=== PATIENT | male | born 1945 | race Two or more races ===

== ENCOUNTER 2019-07-29 12:42 | Inpatient (IN) | payer MEDICARE, OTHER ==
[~2019-07-29] VITALS: Ht 177.8 cm; Wt 90.3 kg
[2019-07-29] MEDS ORDERED: MORPHINE SULFATE 4 MG/ML SYR/VIAL IV ONE (13:00)
[2019-07-29] MEDS ORDERED: ONDANSETRON HCL 4 MG/2 ML VIAL IV ONE (13:00)
[2019-07-29] MEDS ORDERED: ASPirin 81 mg TAB PO ONE (13:00)
[2019-07-29 13:36] LABS: Basophils # (auto) 0.1 10 ^3/uL (0-0.2); Basophils % (auto) 0.7 % (0.0-2.0); Eosinophils # (auto) 0 10 ^3/uL (0-0.8); Eosinophils % (auto) 0.2 % (0.0-7.0); Hematocrit 43.7 % (41.0-53.0); Hemoglobin 15.1 g/dL (13.5-17.5); Lymphocytes % (auto) 8.4 % (10.0-50.0); Mean Corpuscular Hemoglobin 31.6 pg (28.0-32.0); Mean Corpuscular Hgb Conc. 34.7 g/dL (32.0-36.0); Mean Corpuscular Volume 91.2 fL (80.0-100.0); Monocytes # (auto) 0.7 10 ^3/uL (0-1.3); Monocytes % (auto) 5.8 % (0.0-12.0); Neutrophils # (auto) 10.3 10 ^3/uL (1.6-8.6); Neutrophils % (auto) 84.9 % (37.0-80.0); Platelet Count (auto) 162 10^3/uL (140-450); Red Blood Cells 4.79 10^6/uL (4.5-5.90); Red Cell Distribution Width 13.7 % (11.8-14.3); White Blood Cell 12.2 10^3/uL (4.4-10.8)
[2019-07-29 13:48] LABS: Potassium 4.3 mmol/L (3.5-5.1)
[2019-07-29 13:57] LABS: Albumin 3.6 g/dL (3.4-5.0); BUN/Creatinine Ratio 20.3; Calcium 8.3 mg/dL (8.5-10.1); Total Protein 7.6 g/dL (6.4-8.2)
[2019-07-29] MEDS ORDERED: MORPHINE SULF INJ 2 MG/ML SYRINGE 1ML IV PRN (16:15)
[2019-07-29] MEDS ORDERED: NITROGLYCERIN 0.4 MG SL TAB SL PRN (16:15)
[2019-07-29] MEDS ORDERED: traMADol HCL 50 MG TAB PO PRN (17:15)
[2019-07-29] MEDS ORDERED: ACETAMINOPHEN 500 MG TAB PO PRN (17:15)
[2019-07-29] MEDS ORDERED: TEMAZEPAM 15 MG CAP PO PRN (17:15)
[2019-07-29] MEDS ORDERED: LACTULOSE 20Gm/30ML SOLN PO PRN (17:15)
[2019-07-29] MEDS ORDERED: DEXTROSE (50%) 50ML SYRG IV PRN (17:15)
[2019-07-29] MEDS: SODIUM CHLORIDE 0.9% 1,000 ML IV SCH ×2 (17:21→22:38)
--- NOTE | 2019-07-29 18:45 | NUR ---
PATIENT BROUGHT UP TO ROOM 296A, ORIENTED TO ROOM AND HOSPITAL SURROUNDING. PATIENT IS ALERT AND ORIENTED AND DENIES AND SOB, CP, ABD PAIN STATES "ONCE THEY GAVE ME MORPHINE I FEEL GREAT". PATIENT IS SITTING UP EATING DINNER AND INFORMED ME THAT WHEN ALL THIS STARTED HE WAS SUPPOSED TO BE GETTING A STRESS TEST. PATIENTS VITAL SIGNS ARE 151/73, HR 98, 18 RR, 98% AND 98.3.
--- NOTE | 2019-07-29 18:50 | NUR ---
Told R.n that Plavix still to give due to [facility] has no stock in the [facility]
--- NOTE | 2019-07-29 19:00 | NUR ---
RECEIVED CALL FOR CRITICAL VALUE TROPONIN 1.090. PAGED DR ESTES WHO PUT IN ORDERS TO TRANSFER TO [facility]. CHARGE NURSE WAS NOTIFIED WELL AUTO TIRE RECAPPER FOR BED ASSIGNMENT. ENDORSED TO ANTONIO THE PATIENT AND PLAN AT THIS POINT TO TRANSFER. CHECKED ON THE PATIENT AND HE STILL HAS NO COMPLAINTS OF ANY CP OR SOB, HE IS LAYING IN BED AND APPEARS TO BE COMFORTABLE. MONITOR SHOWS NSR 92. Addendum: 07/29/19 at 1938 by MIRTA SILVERMAN RN *ENDORSED TO ANTONIO SALMERON.
[2019-07-29] MEDS ORDERED: ENOXAPARIN SOD 80 MG/0.8ML SYRINGE SC ONE (19:15)
[2019-07-29] MEDS ORDERED: CLOPIDOGREL 300 MG TAB PO ONE (19:15)
[2019-07-29 19:45] VITALS: BP 124/61
--- NOTE | 2019-07-29 19:50 | NUR ---
Report given to Ginny Brice and transfer the patient to definitive observation unit, patient is awake alert oriented x 4, not in distress.
[2019-07-29 20:00] VITALS: BP 138/69
--- NOTE | 2019-07-29 20:59 | NUR ---
Admit to [facility] KAYLA TIERNEY transferred to [facility] via bed on tele box, and portable 02. Patient connected to unit monitoring and oxygen, and weighed by bedscale. Patient oriented to Babs Barker, primary RN, unit, room, bed, and unit policies regarding patient care and visiting hours. All questions and concerns addressed, patient verbalized understanding.
[2019-07-29] MEDS ORDERED: LOSA-69 PO (21:15)
[2019-07-29] MEDS ORDERED: ASPI-123 PO (21:17)
[2019-07-29] MEDS ORDERED: ATOR1TAB PO (21:17)
[2019-07-29] MEDS ORDERED: ATORVASTATIN 20 MG TAB PO SCH (22:00)
[2019-07-29] MEDS: ACCU-CHEK COMFORT CURVE STRIP VI SCH (22:00)
[2019-07-29] MEDS: FAMOTIDINE 20 MG TAB PO SCH (23:06)
[2019-07-29] MEDS: METOPROLOL TARTRATE 25 MG TAB PO SCH (23:07)
[2019-07-29] MEDS: InsuLIN REG 1unit/0.01ml Soln (100units/ml) SC SCH (23:09)
[2019-07-30] VITALS: BP 100/43
[2019-07-30 03:57] VITALS: BP 101/53
[2019-07-30] MEDS: ACCU-CHEK COMFORT CURVE STRIP VI SCH ×4 (07:00→22:09)
[2019-07-30] MEDS: InsuLIN REG 1unit/0.01ml Soln (100units/ml) SC SCH ×4 (07:00→22:00)
--- NOTE | 2019-07-30 07:30 | NUR ---
Pt remains stable. No changes this shift. Denies pain or abd discomfort. Report given, care endorsed.
[2019-07-30 07:40] LABS: Basophils # (auto) 0 10 ^3/uL (0-0.2); Basophils % (auto) 0.4 % (0.0-2.0); Eosinophils # (auto) 0.1 10 ^3/uL (0-0.8); Eosinophils % (auto) 1.1 % (0.0-7.0); Hematocrit 38.6 % (41.0-53.0); Hemoglobin 13.6 g/dL (13.5-17.5); Lymphocytes % (auto) 20.2 % (10.0-50.0); Mean Corpuscular Hemoglobin 32.3 pg (28.0-32.0); Mean Corpuscular Hgb Conc. 35.3 g/dL (32.0-36.0); Mean Corpuscular Volume 91.3 fL (80.0-100.0); Monocytes # (auto) 0.8 10 ^3/uL (0-1.3); Monocytes % (auto) 8.1 % (0.0-12.0); Neutrophils # (auto) 7.1 10 ^3/uL (1.6-8.6); Neutrophils % (auto) 70.2 % (37.0-80.0); Nucleated Red Blood Cells % 0.1 %; Platelet Count (auto) 136 10^3/uL (140-450); Red Blood Cells 4.23 10^6/uL (4.5-5.90); Red Cell Distribution Width 13.3 % (11.8-14.3); White Blood Cell 10.1 10^3/uL (4.4-10.8)
[2019-07-30 08:00] LABS: Calcium 7.6 mg/dL (8.5-10.1); Potassium 3.9 mmol/L (3.5-5.1)
[2019-07-30 08:05] LABS: BUN/Creatinine Ratio 11.9; Total Protein 6.5 g/dL (6.4-8.2)
--- NOTE | 2019-07-30 08:17 | NUR ---
CRITICAL LAB TROPONIN INCREASED FROM 1.090 TO1.950. PT REMAINS ASYMPTOMATIC, DENIES CP, ABDOMINAL PAIN OR S.O.B I NOTIFIED DR. GHOSH OF FINDINGS.DR. GHOSH STATES " I'LL SEE PT LATER"
[2019-07-30 08:30] VITALS: BP 109/55
--- NOTE | 2019-07-30 08:30 | NUR ---
AM ASSESSMENT COMPLETED, DENIES CP OR S.OB AT THIS TIME. ADMITTED FOR CP WITH ELEVATED TROPONIN. IV BENIGN AND PATENT. MONITOR ALARMS VERIFIED. EDUCATED ON POC. PT VERBALIZED UNDERSTANDING.
--- NOTE | 2019-07-30 09:30 | NUR ---
DR. GHOSH IN TO SEE PT. HE WANTS TO DO A HEART CATH FOR PT ON THURSDAY HE TOLD PT THAT HE HAD A HEART ATTACK.
[2019-07-30] MEDS ORDERED: ENOXAPARIN SOD 40 MG/0.4 ML SYRINGE SC SCH (10:00)
[2019-07-30] MEDS: FAMOTIDINE 20 MG TAB PO SCH ×2 (11:00→22:25)
[2019-07-30] MEDS: ENALAPRIL MALEATE 2.5 MG TAB PO SCH (11:01)
[2019-07-30] MEDS: ENOXAPARIN SOD 80 MG/0.8ML SYRINGE SC SCH ×2 (11:01→22:24)
[2019-07-30] MEDS: METOPROLOL TARTRATE 25 MG TAB PO SCH ×2 (11:02→22:00)
[2019-07-30] MEDS: CLOPIDOGREL BISULFATE 75 MG TAB PO SCH (11:02)
[2019-07-30] MEDS: NITROGLYCERIN 0.2MG/HR TOPICAL PATCH TD SCH (11:04)
[2019-07-30] MEDS: SODIUM CHLORIDE 0.9% 1,000 ML IV SCH ×2 (11:05→20:00)
[2019-07-30 12:30] VITALS: BP 118/58
--- NOTE | 2019-07-30 13:25 | NUR ---
COVID SWAB OBTAINED AND WALKED TO LAB, SIGNED IN
--- NOTE | 2019-07-30 14:00 | NUR ---
PLACED PT ON COVID 19 ISOLATION PER MD ORDERS PER PT'S SON'S REQUEST. PT'S SON STATES PT HAS HAD EXPOSURE TO COVID 19 AND HE UNDERSTANDS THAT HE IS MORE FRAGILE DUE TO AGE AND SINCE HE IS GOING TO HAVE A HEART CATH HE IS CONCERNED AND EVEN IF HE WOULD HAVE TO PAY OUT OF POCKET , HE'LL WANT HIS FATHER TESTED.
[2019-07-30 16:00] VITALS: BP 108/60
--- NOTE | 2019-07-30 18:00 | NUR ---
HYGIENE/ CARDIAC OUTPUT PT TOLERATED BEEN OUT OF BED UP IN A CHAIR FOR A COMPLETE SPONGE BATH. NO C/O CHEST PAIN OR S.O.B.
--- NOTE | 2019-07-30 19:00 | NUR ---
PT'S TEST FOR COVID 19 CAME BACK NEGATIVE. ISOLATION DISCONTINUED AT THIS TIME.
[2019-07-30 20:00] VITALS: BP 106/57
--- NOTE | 2019-07-30 20:24 | NUR ---
Pt had large BM, diarrhea. Pt stated cannot have milk. Added low lactose to diet. Pt stable. Will continue to monitor.
[2019-07-31 04:00] VITALS: BP 122/68
[2019-07-31 04:23] LABS: Basophils # (auto) 0 10 ^3/uL (0-0.2); Basophils % (auto) 0.3 % (0.0-2.0); Eosinophils # (auto) 0.2 10 ^3/uL (0-0.8); Hematocrit 38.5 % (41.0-53.0); Hemoglobin 13.3 g/dL (13.5-17.5); Lymphocytes # (auto) 2.1 10 ^3/uL (0.4-5.4); Lymphocytes % (auto) 21.1 % (10.0-50.0); Mean Corpuscular Hemoglobin 31.8 pg (28.0-32.0); Mean Corpuscular Hgb Conc. 34.6 g/dL (32.0-36.0); Mean Corpuscular Volume 91.8 fL (80.0-100.0); Monocytes # (auto) 0.8 10 ^3/uL (0-1.3); Monocytes % (auto) 7.9 % (0.0-12.0); Neutrophils # (auto) 6.7 10 ^3/uL (1.6-8.6); Neutrophils % (auto) 68.7 % (37.0-80.0); Platelet Count (auto) 135 10^3/uL (140-450); Red Blood Cells 4.19 10^6/uL (4.5-5.90); Red Cell Distribution Width 13.7 % (11.8-14.3); White Blood Cell 9.8 10^3/uL (4.4-10.8)
--- NOTE | 2019-07-31 06:05 | NUR ---
Paging MD regarding critical value troponin 14.300.
--- NOTE | 2019-07-31 06:06 | NUR ---
Stable, oriented, denies pain. Resting comfortably. Told pt to no eat or drink until further notice from RN this morning in case MD decides to take pt to equipment operator/laborer.
[2019-07-31] MEDS: ACCU-CHEK COMFORT CURVE STRIP VI SCH ×4 (07:00→22:00)
[2019-07-31] MEDS: InsuLIN REG 1unit/0.01ml Soln (100units/ml) SC SCH ×3 (07:00→16:25)
--- NOTE | 2019-07-31 07:00 | NUR ---
REPORT RECEIVED FROM GROUNDS RESTORATION SPECIALIST NURSE. PATIENT RESTING IN BED. RESPIRATIONS EVEN AND UNLABORED. NO SIGNS OF ACUTE DISTRESS NOTED. CALL LIGHT IN REACH, BED IN LOW POSITION. WILL CONTINUE TO MONITOR.
--- NOTE | 2019-07-31 07:50 | NUR ---
nutrition note pt consult for low lactose diet, dietary informed to make necessary changes as pt intolerant to lactose
--- NOTE | 2019-07-31 07:51 | NUR ---
paged again but was on hold so long it disconnected the phone call. Repaged to report Troponin level.
[2019-07-31 08:00] VITALS: BP 118/64
[2019-07-31 08:58] LABS: Urine WBC None Seen /hpf (0 - 3)
--- NOTE | 2019-07-31 09:01 | NUR ---
DR ESTES AT BEDSIDE TO ASSESS PATIENT AND DISCUSS PLAN OF CARE. ALL ORDERS NOTED IN CHART.
[2019-07-31] MEDS: SODIUM CHLORIDE 0.9% 1,000 ML IV SCH ×2 (09:03→21:54)
[2019-07-31 09:21] LABS: Urine Bacteria NONE SEEN /hpf (None Seen); Urine Blood Negative /uL (Negative); Urine Mucus FEW (None Seen)
[2019-07-31] MEDS: METOPROLOL TARTRATE 25 MG TAB PO SCH ×2 (10:00→23:05)
[2019-07-31] MEDS: CLOPIDOGREL BISULFATE 75 MG TAB PO SCH (10:00)
--- NOTE | 2019-07-31 10:02 | NUR ---
SPOKE TO DR BOBO ABOUT PATIENTS ELEVATED TROPONIN OF 14.30, PER MD KEEP PATIENT NPO WILL TAKE PATIENT TO MEDIA LIBRARIAN THIS AFTERNOON AROUND 1200. INFORMED PATIENT OF PLAN OF CARE. CALLED PAYROLL BENEFITS CLERK TO INFORM OF MD PLAN.
[2019-07-31] MEDS: NITROGLYCERIN 0.2MG/HR TOPICAL PATCH TD SCH (11:00)
[2019-07-31] MEDS: ENALAPRIL MALEATE 2.5 MG TAB PO SCH (11:00)
[2019-07-31] MEDS: FAMOTIDINE 20 MG TAB PO SCH ×2 (11:00→23:06)
[2019-07-31] MEDS ORDERED: ATROPINE SULF 1 MG/10ml SYR ONE (11:03)
[2019-07-31] MEDS ORDERED: HEPARIN SODIUM (PORCINE) 5000 UNITS/ML 1ML VIAL ONE (11:04)
[2019-07-31] MEDS ORDERED: MIDAZOLAM HCL 1MG/1ML-2 ML VIAL ONE (11:04)
[2019-07-31] MEDS ORDERED: fentaNYL CITRATE 100 MCG/2 ML VL ONE (11:04)
[2019-07-31] MEDS ORDERED: ANGIOMAX 250 MG VIAL IV ONE (11:04)
[2019-07-31] MEDS ORDERED: VERAPAMIL 2.5MG/ML INJ 2ML VIAL IV ONE (11:04)
[2019-07-31] MEDS ORDERED: SODIUM CHL 0.9% 0 ML ONE (11:05)
[2019-07-31] MEDS ORDERED: LIDOCAINE 2%HCL (LOCAL ANESTH.) INJ 20ML MDV ONE (11:16)
[2019-07-31] MEDS ORDERED: IODIXANOL 320MG/ML 100ML BTL IV ONE ×2 (11:16→11:44)
--- NOTE | 2019-07-31 11:25 | NUR ---
Pt brought to director of labor relations rm #2 in stable condition on a secured entrance monitor by 2 RN's. Pt A & O x4. Pt denies pain and nausea. No incidents to report.
--- NOTE | 2019-07-31 11:25 | NUR ---
PATIENT TAKEN TO PIN OR CLIP FASTENER FOR LEFT HEART CATHETERIZATION VIA BED CONNECTED TO PORTABLE OXYGEN AND MONITOR. VITAL SIGNS STABLE, NO COMPLAINTS OF PAIN AT THIS TIME. 2 RN'S FROM PIN OR CLIP FASTENER ACCOMPANIED PATIENT
[2019-07-31 11:47] LABS: Albumin 3.1 g/dL (3.4-5.0); Calcium 8.2 mg/dL (8.5-10.1); Potassium 3.6 mmol/L (3.5-5.1)
[2019-07-31 11:48] LABS: INR 1.17 (0.9-1.15)
[2019-07-31 11:50] LABS: BUN/Creatinine Ratio 10.3; Bilirubin, Total 2.6 mg/dL (0.2-1.0); Total Protein 7.1 g/dL (6.4-8.2)
--- NOTE | 2019-07-31 12:16 | NUR ---
Pt transported from Sustainable Design Coordinator to [facility] in stable condition on a monitor and storage bin tender. Pt A/O x4. Pt denies pain or nausea. Vasc band to the pt left wrist has no bleeding or hematoma. CSM to the left hand is WNL. Vasc band removal instructions given to JARON Tee. Care endorsed to JARON Tee. No incidents to report.
--- NOTE | 2019-07-31 12:16 | NUR ---
Left heart cath completed by Dr Robles. Report given to JARON Tee in detail by JARON Muñoz. Pt in stable condition. Will prepare to transport pt to [facility]. Will cont to monitor pt. Addendum: 07/31/19 at 1240 by Thao Muñoz RN Time change to for this note from 1216 to 1205.
--- NOTE | 2019-07-31 12:22 | NUR ---
PATIENT RETURNED TO ROOM FROM PAINT BOOTH OPERATOR VIA BED CONNECTED BACK TO BEDSIDE MONITOR AND OXYGEN. VITAL SIGNS STABLE, PATIENT IS ALERT AND ORIENTED X4. NO SIGNS OF ACUTE DISTRESS NOTED. BED IN LOW POSITION, CALL LIGHT IN REACH. WILL CONTINUE TO MONITOR.
[2019-07-31 12:25] VITALS: BP 125/59
[2019-07-31] MEDS ORDERED: HEPARIN SODIUM (PORCINE) 5000 UNITS/ML 1ML VIAL IV ONE (12:30)
--- NOTE | 2019-07-31 13:45 | NUR ---
VASC BAND TO LEFT WRIST REMOVED 2 ML OF AIR FROM BAND PER PROTOCOL. NO NOTED BLEEDING AT THIS TIME. WILL CONTINUE TO MONITOR.
[2019-07-31 13:49] LABS: Basophils # (auto) 0 10 ^3/uL (0-0.2); Basophils % (auto) 0.4 % (0.0-2.0); Eosinophils # (auto) 0.2 10 ^3/uL (0-0.8); Eosinophils % (auto) 2.4 % (0.0-7.0); Hematocrit 39.7 % (41.0-53.0); Hemoglobin 13.8 g/dL (13.5-17.5); Lymphocytes # (auto) 1.8 10 ^3/uL (0.4-5.4); Lymphocytes % (auto) 21.7 % (10.0-50.0); Mean Corpuscular Hemoglobin 31.7 pg (28.0-32.0); Mean Corpuscular Hgb Conc. 34.7 g/dL (32.0-36.0); Mean Corpuscular Volume 91.5 fL (80.0-100.0); Monocytes # (auto) 0.6 10 ^3/uL (0-1.3); Monocytes % (auto) 6.6 % (0.0-12.0); Neutrophils # (auto) 5.8 10 ^3/uL (1.6-8.6); Neutrophils % (auto) 68.9 % (37.0-80.0); Platelet Count (auto) 135 10^3/uL (140-450); Red Blood Cells 4.33 10^6/uL (4.5-5.90); Red Cell Distribution Width 13.4 % (11.8-14.3); White Blood Cell 8.4 10^3/uL (4.4-10.8)
--- NOTE | 2019-07-31 14:00 | NUR ---
VASC BAND TO LEFT WRIST REMOVED 2 ML OF AIR FROM BAND PER PROTOCOL. NO NOTED BLEEDING AT THIS TIME. WILL CONTINUE TO MONITOR.
--- NOTE | 2019-07-31 14:15 | NUR ---
VASC BAND TO LEFT WRIST REMOVED 2 ML OF AIR FROM BAND PER PROTOCOL. NO NOTED BLEEDING AT THIS TIME. WILL CONTINUE TO MONITOR.
[2019-07-31] MEDS: HEPARIN DRIP/D5W 100UNITS/ML 250 ML IV SCH (14:16)
--- NOTE | 2019-07-31 14:25 | NUR ---
PAGED PRESSER MACHINE CLINICAL LAB ASSISTANT TO INFORM OF POSSIBLE TRANSFER TO HIGHER LEVEL OF CARE FOR CABG. AWAITNG CALL BACK.
--- NOTE | 2019-07-31 14:30 | NUR ---
SPOKE TO DR BOBO TO INFORM THAT PATIENT IS REQUESTING TO BE TRANSFERRED TO [facility] IF HE IS UNABLE TO HAVE SURGERY HERE. PER MD OK TO PLACE A HOSPITAL TO REQUEST TRANSFER, BUT PATIENT NEEDS TO GO TO HOSPITAL THAT IS ABLE TO DO THE SURGERY THE FASTEST. INFORMED PATIENT OF MD RECOMMENDATIONS.
--- NOTE | 2019-07-31 14:35 | NUR ---
HEPARIN DRIP DR BOBO CALLED TO INFORM NOT TO START HEPARIN DRIP UNTIL 4 PM . INFORMED MD THAT IT WAS STARTED AT APPROX. 1415. PER MD STOP NOW AND RESTART AT 4PM. ORDERS COMPLETED.
--- NOTE | 2019-07-31 14:50 | NUR ---
SPOKE TO OTILIO FROM PETROLEUM TERMINAL PLANT OPERATOR. SHE STATED IT WILL BE BETTER TO START PROCESS ONCE DR WOUSU COMPLETES CONSULTATION TO SEE IF HIGHER LEVEL OF CARE IS NEEDED OR IF PATIENT IS TO HAVE SURGERY HERE.
--- NOTE | 2019-07-31 15:00 | NUR ---
VASC BAND REMOVAL REMOVED VASC BAND FROM LEFT WRIST AND PLACED STERILE GAUZE AND TEGADERM. NO NOTED BLEEDING, WILL CONTINUE TO MONITOR.
[2019-07-31 16:00] VITALS: BP 131/71
--- NOTE | 2019-07-31 16:55 | NUR ---
PLANISHER AT BEDSIDE.
[2019-07-31 20:00] VITALS: BP 149/78
[2019-07-31 23:00] VITALS: BP 156/81
--- NOTE | 2019-07-31 23:00 | NUR ---
Pt states has been feeling some epigastric pain since after dinner. Morphine for pain given. Will continue to monitor.
[2019-07-31] MEDS: MORPHINE SULF INJ 2 MG/ML SYRINGE 1ML IV PRN (23:06)
[2019-08-01] VITALS (10 sets, daily range): BP systolic 134–165; BP diastolic 69–86
[2019-08-01] MEDS: InsuLIN REG 1unit/0.01ml Soln (100units/ml) SC SCH ×4 (00:12→17:14)
--- NOTE | 2019-08-01 00:19 | NUR ---
PTT 49, increase heparin drip by 200 units per protocol.
--- NOTE | 2019-08-01 01:15 | NUR ---
Pt states still having pain. Ultram given. Will continue to monitor.
--- NOTE | 2019-08-01 03:45 | NUR ---
Pt states pain still keeping him from sleeping and seems worse. CP protocol initiated. Morphine given, Phenergan also given, and EKG done, no major dysrhythmia noted. MD aware.
[2019-08-01] MEDS: PROMETHAZINE HCL 25 MG/ML 1ML IV PRN ×2 (03:48→19:53)
--- NOTE | 2019-08-01 04:15 | NUR ---
Pt states pain relief. Able to sleep. Will continue to monitor.
--- NOTE | 2019-08-01 06:30 | NUR ---
Dr. Livingston called and stated he does not have an lead assistant manager to do any procedures until maybe and that pt needs to be transferred to a higher level of care. He stated if the pt has not been able to get a bed to be transferred by then that he would do the procedure.
[2019-08-01 07:09] LABS: Basophils # (auto) 0.1 10 ^3/uL (0-0.2); Basophils % (auto) 0.9 % (0.0-2.0); Eosinophils # (auto) 0.2 10 ^3/uL (0-0.8); Eosinophils % (auto) 2.5 % (0.0-7.0); Hematocrit 39.5 % (41.0-53.0); Hemoglobin 13.8 g/dL (13.5-17.5); Lymphocytes # (auto) 1.7 10 ^3/uL (0.4-5.4); Mean Corpuscular Hemoglobin 31.8 pg (28.0-32.0); Mean Corpuscular Hgb Conc. 34.9 g/dL (32.0-36.0); Mean Corpuscular Volume 90.9 fL (80.0-100.0); Monocytes # (auto) 0.5 10 ^3/uL (0-1.3); Monocytes % (auto) 5.8 % (0.0-12.0); Neutrophils # (auto) 6.8 10 ^3/uL (1.6-8.6); Neutrophils % (auto) 72.8 % (37.0-80.0); Nucleated Red Blood Cells % 0.1 %; Platelet Count (auto) 149 10^3/uL (140-450); Red Blood Cells 4.34 10^6/uL (4.5-5.90); White Blood Cell 9.4 10^3/uL (4.4-10.8)
[2019-08-01 07:22] LABS: BUN/Creatinine Ratio 11.9; Calcium 7.9 mg/dL (8.5-10.1); INR 1.11 (0.9-1.15); Potassium 3.4 mmol/L (3.5-5.1)
--- NOTE | 2019-08-01 07:30 | NUR ---
Pt remained stable the rest of shift and able to rest. Report given to AM shift, care endorsed. Pt states white retail loan originator assistant shoes missing. Will contact lost and found.
--- NOTE | 2019-08-01 08:30 | NUR ---
Opening Shift Note Assumed care of patient, awake and alert. No S/S of distress/SOB or chest pain noted. Instructed on POC and to call for assist PRN, will continue to monitor for changes Q1hr and PRN. On Room air O2 saturation 96-97%, no N/V noted.
[2019-08-01] MEDS: SODIUM CHLORIDE 0.9% 1,000 ML IV SCH (08:33)
[2019-08-01] MEDS: ACCU-CHEK COMFORT CURVE STRIP VI SCH ×3 (08:34→17:07)
--- NOTE | 2019-08-01 08:59 | NUR ---
Called the kitchen for Breakfast tray.
--- NOTE | 2019-08-01 09:15 | NUR ---
Provided breakfast tray.
[2019-08-01] MEDS: METOPROLOL TARTRATE 25 MG TAB PO SCH (09:26)
[2019-08-01] MEDS: ENALAPRIL MALEATE 2.5 MG TAB PO SCH (09:27)
[2019-08-01] MEDS: FAMOTIDINE 20 MG TAB PO SCH (09:27)
[2019-08-01] MEDS: NITROGLYCERIN 0.2MG/HR TOPICAL PATCH TD SCH (09:28)
[2019-08-01] MEDS ORDERED: ASPirin 81 mg TAB PO SCH (10:00)
--- NOTE | 2019-08-01 10:30 | NUR ---
Received a call from Dr. Robles, patient already on Heparin and Aspirin, no new order at this time. Plan to transfer to higher level of care.
--- NOTE | 2019-08-01 11:07 | NUR ---
Received a call from Dr. Jara, informed doctor that still waiting disability case manager working with transfer to higher level of care nd informed doctor that patient would like to have surgery done here in our hospital, MD will see patient today.
--- NOTE | 2019-08-01 11:12 | NUR ---
Received a call from Dr. Hsu, updated the plan that patient would like to have CABG done here , not transfer , will wait Dr. Jara to see patient and update with the plan of care later.
--- NOTE | 2019-08-01 11:40 | NUR ---
Dr. Jara at the bedside, seen and examined patient at this time, plan of care discussed with patient. Possible transfer to higher level of care for CABG due to no team available this week. Called and left the message to frozen foods manager to call back to Dr. Jara. Will continue to monitor and care.
--- NOTE | 2019-08-01 12:15 | NUR ---
Dr. Hsu at the bedside, seen and examined patient at this time, plan of care discussed with patient, per Dr. Jara, will transfer patient ti higher level of care for CABG.
--- NOTE | 2019-08-01 12:42 | NUR ---
I spoke with both Dr. Jara and Dr. Hsu regarding the transfer order/plan of care for this patient. I called [facility] [phone] and spoke with Teri in Admitting-faxed her requested clinical information-she will present to her MD and give me a call back.
--- NOTE | 2019-08-01 13:01 | NUR ---
Patient sitting on the edge of the bed for having Lunch, no N/V or chest pain noted.
[2019-08-01 13:20] LABS: INR 1.09 (0.9-1.15); Partial Thromboplastin Time 56.4 sec (23.64-32.05)
[2019-08-01] MEDS: HEPARIN DRIP/D5W 100UNITS/ML 250 ML IV SCH (13:56)
--- NOTE | 2019-08-01 15:16 | NUR ---
I spoke with patient regarding his transfer order for CABG. I made patient aware that [place] to [place] lack of service connection. Per patient his monthly income is over 1000 and will not qualify for medi-bret. Patient stated he hasn't had a need for secondary insurance-[facility] I made patient aware that he may be transferred to [facility] and he is agreeable. Per patient his primary care physician is at the [facility]. Patient moved here about a year ago, has not changed his primary care physician because he is not sure if he will stay here in [place] or move back to [place].
--- NOTE | 2019-08-01 15:25 | NUR ---
Left the message to Meaghan university manager per patient doesn't want to go to [facility], patient would like to go to some where else like [facility] etc, waiting Meaghan to call back.
--- NOTE | 2019-08-01 15:40 | NUR ---
Paged Meaghan asset protection manager to call back regarding patient would like to change to another hospital.
--- NOTE | 2019-08-01 15:42 | NUR ---
Transferred a call from Meaghan to talk to patient per patient requested.
--- NOTE | 2019-08-01 16:41 | NUR ---
Called and left the message to Lost and found unit for patient is looking for his shoes (White color).
--- NOTE | 2019-08-01 17:22 | NUR ---
I spoke with patient regarding his concerns about wanting to go to a [facility]. I let him know that I reached out to [facility], [facility] and [facility] and they have no beds available. Patient is agreeable to be transferred to [facility]. Patient will be going to room 3109, nurse to call report to [phone], accepting MD is Dr. Rose. I called [facility] and spoke with Ely-faxed them the transportation voucher-ETA is 2000 for critical care transport-I relayed this information to nurse Floridalma.
--- NOTE | 2019-08-01 18:41 | NUR ---
Dinner tray provided, patient sitting on the edge of bed for having Dinner. His son at the bedside for 15 minutes before transfer to another hospital ([facility]).
[2019-08-01 18:49] LABS: INR 1.13 (0.9-1.15); Partial Thromboplastin Time 53.2 sec (23.64-32.05)
--- NOTE | 2019-08-01 19:47 | NUR ---
PTT 53.2, continue Heparin 12 ml/hr, no bolus or change the rate needed as ordered.
[2019-08-01] MEDS: MORPHINE SULF INJ 2 MG/ML SYRINGE 1ML IV PRN (19:56)
--- NOTE | 2019-08-01 20:10 | NUR ---
PT TRANSFERRED NO DISTRESS NOTED. TRANSFERRING RN WITH PT SETTING UP [facility], REPORT RECEIVED.
[2019-08-01] MEDS ORDERED: ATORVASTATIN 20 MG TAB PO SCH (22:00)
== END 2019-08-01 20:10 | disposition short-term general hospital (02) | DRG 282 ==
LOC: EDBD 12:42 → ER 12:42 → TELE 12:43 → TELE-WESTW 18:39 → DOU IN ICU 19:31
PROVIDERS: ADMIT Internal Medicine; ATTEND Internal Medicine Nephrology
PROC: B211YZZ Fluoroscopy of Multiple Coronary Arteries using Other Contrast (ICD-10-PCS; principal; 2019-08-01)
DX: I21.4 Non-ST elevation (NSTEMI) myocardial infarction (principal); E11.9 Type 2 diabetes mellitus without complications; E66.9 Obesity, unspecified; E78.5 Hyperlipidemia, unspecified; I10 Essential (primary) hypertension; K76.0 Fatty (change of) liver, not elsewhere classified; D69.6 Thrombocytopenia, unspecified; E66.3 Overweight; E87.6 Hypokalemia; Z85.46 Personal history of malignant neoplasm of prostate; Z92.3 Personal history of irradiation; Z87.891 Personal history of nicotine dependence; Z68.28 Body mass index [BMI] 28.0-28.9, adult; Z88.5 Allergy status to narcotic agent; Z82.49 Family history of ischemic heart disease and other diseases of the circulatory system; I25.2 Old myocardial infarction; Z79.899 Other long term (current) drug therapy; Z79.82 Long term (current) use of aspirin; Z11.59 Encounter for screening for other viral diseases; I25.119 Atherosclerotic heart disease of native coronary artery with unspecified angina pectoris
CPT/HCPCS: 36415; 36600; 71045; 76705; 80048; 80053; 81001; 82150; 82550; 82805; 82962; 83036; 83690; 83735; 83880; 84484; 85025; 85379; 85610; 85652; 85730; 86850; 86900; 86901; 93005; 93454; 93886; 99152; G0378; J1815; J2250; J2405; Q9967

== ENCOUNTER 2019-08-07 17:31 | Emergency (ER) | payer MEDICARE, OTHER ==
[~2019-08-07] VITALS: Ht 172.7 cm; Wt 80.3 kg
[~2019-08-07 17:31] MED LIST: ASPI-123 PO; ATOR1TAB PO; LOSA-69 PO
[2019-08-07 18:28] LABS: Basophils # (auto) 0 10 ^3/uL (0-0.2); Basophils % (auto) 0.3 % (0.0-2.0); Eosinophils # (auto) 0.3 10 ^3/uL (0-0.8); Eosinophils % (auto) 1.6 % (0.0-7.0); Hematocrit 32.4 % (41.0-53.0); Lymphocytes # (auto) 1.4 10 ^3/uL (0.4-5.4); Mean Corpuscular Hemoglobin 31.1 pg (28.0-32.0); Mean Corpuscular Hgb Conc. 33.9 g/dL (32.0-36.0); Mean Corpuscular Volume 91.7 fL (80.0-100.0); Monocytes # (auto) 1.2 10 ^3/uL (0-1.3); Monocytes % (auto) 7.3 % (0.0-12.0); Neutrophils # (auto) 14.1 10 ^3/uL (1.6-8.6); Neutrophils % (auto) 82.8 % (37.0-80.0); Nucleated Red Blood Cells % 0.1 %; Platelet Count (auto) 305 10^3/uL (140-450); Red Blood Cells 3.53 10^6/uL (4.5-5.90); Red Cell Distribution Width 13.3 % (11.8-14.3); White Blood Cell 17.1 10^3/uL (4.4-10.8)
[2019-08-07 18:52] LABS: INR 1.14 (0.9-1.15); Partial Thromboplastin Time 32.1 sec (23.64-32.05)
[2019-08-07 18:55] LABS: Bilirubin, Total 2.8 mg/dL (0.2-1.0); Total Protein 8.8 g/dL (6.4-8.2)
[2019-08-07] MEDS ORDERED: cefTRIAXone 1GM/50ML D5W 50 ML IV ONE (23:00)
[2019-08-08] MEDS ORDERED: MORPHINE SULFATE 4 MG/ML SYR/VIAL IV ONE (02:15)
[2019-08-08] MEDS ORDERED: ONDANSETRON HCL 4 MG/2 ML VIAL IV ONE (02:15)
[2019-08-08 04:30] VITALS: BP 114/55
== END 2019-08-08 04:55 | disposition short-term general hospital (02) ==
LOC: ER 17:31
DX: J18.9 Pneumonia, unspecified organism (principal); N17.9 Acute kidney failure, unspecified; I11.0 Hypertensive heart disease with heart failure; I50.41 Acute combined systolic (congestive) and diastolic (congestive) heart failure; R79.89 Other specified abnormal findings of blood chemistry; E11.9 Type 2 diabetes mellitus without complications; E78.5 Hyperlipidemia, unspecified; Z95.1 Presence of aortocoronary bypass graft
CPT/HCPCS: 36415; 71046; 80053; 83605; 83735; 83880; 84484; 85025; 85379; 85610; 85730; 87040; 93005; 96365; 96375; 99285; J0696; J2270; J2405

== ENCOUNTER 2019-12-15 12:06 | Emergency (ER) | payer OTHER ==
[~2019-12-15] VITALS: Ht 172.7 cm; Wt 76.2 kg
[2019-12-15 13:20] LABS: Calcium 9.2 mg/dL (8.5-10.1); Chloride 106 mmol/L (98-107); Sodium 138 mmol/L (136-145)
[2019-12-15 13:29] LABS: Alanine Aminotransferase 21 U/L (16-61); Alkaline Phosphatase 121 U/L (45-117); Anion Gap 6 (5-15); Aspartate Aminotransferase 25 U/L (15-37); Bilirubin, Total 1.6 mg/dL (0.2-1.0); Blood Urea Nitrogen 26 mg/dL (7-18); Carbon Dioxide 26 mmol/L (21-32); GFR African American 74 mL/min; GFR Non-African American 61 mL/min; Glucose 185 mg/dL (74-106); Total Protein 8.2 g/dL (6.4-8.2)
[2019-12-15 14:03] LABS: Basophils # (auto) 0 10 ^3/uL (0-0.2); Basophils % (auto) 0.5 % (0.0-2.0); Eosinophils # (auto) 0.5 10 ^3/uL (0-0.8); Eosinophils % (auto) 6.2 % (0.0-7.0); Hematocrit 43.4 % (41.0-53.0); Hemoglobin 14.7 g/dL (13.5-17.5); Lymphocytes # (auto) 1.7 10 ^3/uL (0.4-5.4); Lymphocytes % (auto) 23.3 % (10.0-50.0); Mean Corpuscular Hemoglobin 29.4 pg (28.0-32.0); Mean Corpuscular Hgb Conc. 33.9 g/dL (32.0-36.0); Mean Corpuscular Volume 86.8 fL (80.0-100.0); Monocytes # (auto) 0.3 10 ^3/uL (0-1.3); Monocytes % (auto) 3.9 % (0.0-12.0); Neutrophils # (auto) 4.9 10 ^3/uL (1.6-8.6); Neutrophils % (auto) 66.1 % (37.0-80.0); Nucleated Red Blood Cells % 1.4 %; Platelet Count (auto) 194 10^3/uL (140-450); Red Cell Distribution Width 14.7 % (11.8-14.3); White Blood Cell 7.4 10^3/uL (4.4-10.8)
[2019-12-15 14:45] VITALS: BP 152/66
== END 2019-12-15 14:52 | disposition home or self-care (01) ==
LOC: ER 12:06
DX: R42 Dizziness and giddiness (principal); E11.9 Type 2 diabetes mellitus without complications; E78.5 Hyperlipidemia, unspecified; I10 Essential (primary) hypertension; Z87.891 Personal history of nicotine dependence; Z88.6 Allergy status to analgesic agent
CPT/HCPCS: 36415; 80053; 84484; 85025; 93005

== ENCOUNTER → 2020-09-26 | Outpatient (CLI) | payer OTHER ==
[~2020-09-26] MED LIST changes: +ATOR-47 PO; -ATOR1TAB PO
== END | disposition home or self-care (01) ==
LOC: XY 10:06
PROVIDERS: ATTEND Internal Medicine
DX: I70.201 Unspecified atherosclerosis of native arteries of extremities, right leg (principal); M79.604 Pain in right leg; M79.89 Other specified soft tissue disorders
CPT/HCPCS: 93926

== ENCOUNTER → 2020-11-27 | Outpatient (CLI) | payer OTHER ==
[2020-11-27 09:01] LABS: Potassium 4.1 mmol/L (3.5-5.1)
== END | disposition home or self-care (01) ==
LOC: LAB 08:14
PROVIDERS: ATTEND Internal Medicine
DX: I12.9 Hypertensive chronic kidney disease with stage 1 through stage 4 chronic kidney disease, or unspecified chronic kidney disease (principal); E11.22 Type 2 diabetes mellitus with diabetic chronic kidney disease; N18.30 Chronic kidney disease, stage 3 unspecified
CPT/HCPCS: 36415; 80048; 80061; 83036

== ENCOUNTER 2021-01-09 06:32 | Inpatient (IN) | payer OTHER ==
[2021-01-07 11:43] LABS: INR 1.09 (0.9-1.15); Partial Thromboplastin Time 26.5 sec (23.6-33.0)
[2021-01-07 11:44] LABS: Basophils # (auto) 0 10 ^3/uL (0-0.2); Basophils % (auto) 0.6 % (0.0-2.0); Eosinophils # (auto) 0.1 10 ^3/uL (0-0.8); Eosinophils % (auto) 2.1 % (0.0-7.0); Hemoglobin 15.2 g/dL (13.5-17.5); Lymphocytes # (auto) 1.8 10 ^3/uL (0.4-5.4); Lymphocytes % (auto) 25.5 % (10.0-50.0); Mean Corpuscular Hemoglobin 31.9 pg (28.0-32.0); Mean Corpuscular Hgb Conc. 35.3 g/dL (32.0-36.0); Mean Corpuscular Volume 90.4 fL (80.0-100.0); Monocytes # (auto) 0.5 10 ^3/uL (0-1.3); Monocytes % (auto) 7.2 % (0.0-12.0); Neutrophils # (auto) 4.5 10 ^3/uL (1.6-8.6); Neutrophils % (auto) 64.6 % (37.0-80.0); Nucleated Red Blood Cells % 0.1 %; Red Blood Cells 4.75 10^6/uL (4.5-5.90); Red Cell Distribution Width 13.8 % (11.8-14.3)
[2021-01-07 12:13] LABS: Potassium 4.3 mmol/L (3.5-5.1)
[2021-01-07 13:05] LABS: Albumin 3.7 g/dL (3.4-5.0); BUN/Creatinine Ratio 16.1; Calcium 8.9 mg/dL (8.5-10.1); Total Protein 7.7 g/dL (6.4-8.2)
[~2021-01-09] VITALS: Ht 172.7 cm; Wt 87.3 kg
[2021-01-09] VITALS (11 sets, daily range): BP systolic 104–136; BP diastolic 57–69
[~2021-01-09 06:32] MED LIST changes: +CARV3.1240 PO; -LOSA-69 PO
[2021-01-09] MEDS ORDERED: IODIXANOL 320MG/ML 100ML BTL IV ONE ×3 (07:13→09:29)
[2021-01-09] MEDS ORDERED: HEPARIN IN NS 1000Units/500mL 0 ML ONE (07:13)
[2021-01-09] MEDS ORDERED: LIDOCAINE 2%HCL (LOCAL ANESTH.) INJ 20ML MDV ONE ×2 (07:13→08:44)
[2021-01-09] MEDS ORDERED: ANGIOMAX 250 MG VIAL IV ONE ×2 (08:49→10:04)
[2021-01-09] MEDS ORDERED: MIDAZOLAM HCL 2MG/2ML 2ml VIAL (1mg/ml) ONE (08:50)
[2021-01-09] MEDS ORDERED: fentaNYL CITRATE 100 MCG/2 ML VL ONE (08:50)
[2021-01-09] MEDS ORDERED: SODIUM CHL 0.9% 50 ML ONE ×2 (08:50→10:05)
[2021-01-09] MEDS ORDERED: diphenhdrAMINE HCL 50 MG/1 ML VL ONE (09:16)
[2021-01-09] MEDS ORDERED: VERAPAMIL 2.5MG/ML INJ 2ML VIAL IV ONE (09:30)
[2021-01-09] MEDS ORDERED: NITROGLYCERIN 5MG/ML 10ML VIAL IV ONE (09:30)
[2021-01-09] MEDS ORDERED: MORPHINE SULFATE INJECTION 2 MG/ML SYRG IV ONE (18:00)
[2021-01-09] MEDS ORDERED: ACETAMINOPHEN 325 MG TAB PO PRN (18:15)
[2021-01-09] MEDS ORDERED: SODIUM CHLORIDE 0.9% 1,000 ML IV SCH (18:15)
[2021-01-09] MEDS ORDERED: CILOSTAZOL 100 MG TAB PO ONE (18:15)
[2021-01-09] MEDS ORDERED: MORPHINE SULFATE INJECTION 2 MG/ML SYRG IV PRN ×2 (18:15)
[2021-01-09] MEDS ORDERED: ALUM & MAG HYDROX-SIMETH LIQ(MAALOX) 30 ML PO PRN (18:15)
[2021-01-09] MEDS ORDERED: ONDANSETRON HCL 4 MG/2 ML VIAL IV PRN (18:15)
[2021-01-09] MEDS ORDERED: DOCUSATE SOD 100 MG CAP PO PRN (18:15)
[2021-01-09] MEDS ORDERED: NITROGLYCERIN 0.4 MG SL TAB SL PRN (18:15)
[2021-01-09] MEDS ORDERED: ATORVASTATIN 20 MG TAB PO ONE (18:15)
[2021-01-09] MEDS ORDERED: SODIUM CHLORIDE 0.9% 1,000 ML IV ONE (18:15)
[2021-01-09] MEDS ORDERED: LORazepam 0.5 MG TAB PO PRN (18:15)
[2021-01-09] MEDS ORDERED: PENTOXIFYLLINE 400 MG ER TAB PO ONE (18:45)
[2021-01-09 20:50] LABS: Cholesterol 75 mg/dL (< 200); HDL Cholesterol 32 mg/dL (40-59); LDL Cholesterol 31 mg/dL (< 100); Triglycerides 196 mg/dL (< 150)
[2021-01-09] MEDS: RIVAROXABAN 10 MG TAB PO SCH (21:15)
[2021-01-09] MEDS ORDERED: CILOSTAZOL 100 MG TAB PO SCH (22:00)
[2021-01-10 05:00] VITALS: BP 115/69
[2021-01-10] MEDS ORDERED: PENTOXIFYLLINE 400 MG ER TAB PO SCH (06:00)
[2021-01-10 07:19] LABS: Basophils # (auto) 0 10 ^3/uL (0-0.2); Basophils % (auto) 0.4 % (0.0-2.0); Eosinophils # (auto) 0.1 10 ^3/uL (0-0.8); Eosinophils % (auto) 1.6 % (0.0-7.0); Hematocrit 37.8 % (41.0-53.0); Hemoglobin 13.1 g/dL (13.5-17.5); Lymphocytes # (auto) 2.1 10 ^3/uL (0.4-5.4); Lymphocytes % (auto) 23.5 % (10.0-50.0); Mean Corpuscular Hemoglobin 31.1 pg (28.0-32.0); Mean Corpuscular Hgb Conc. 34.6 g/dL (32.0-36.0); Monocytes # (auto) 0.8 10 ^3/uL (0-1.3); Monocytes % (auto) 8.4 % (0.0-12.0); Neutrophils % (auto) 66.1 % (37.0-80.0); Red Cell Distribution Width 13.9 % (11.8-14.3); White Blood Cell 9.1 10^3/uL (4.4-10.8)
[2021-01-10 07:34] LABS: INR 1.27 (0.9-1.15); Partial Thromboplastin Time 34.2 sec (23.6-33.0)
[2021-01-10 07:40] LABS: Potassium 3.9 mmol/L (3.5-5.1)
[2021-01-10 07:59] LABS: BUN/Creatinine Ratio 22.3; Bilirubin, Total 2.3 mg/dL (0.2-1.0); Calcium 8.6 mg/dL (8.5-10.1); Magnesium 2.7 mg/dL (1.6-2.6); Phosphorus 3.7 mg/dL (2.5-4.90); Total Protein 6.9 g/dL (6.4-8.2); Uric Acid 4.6 mg/dL (3.5-7.2)
[2021-01-10 08:55] VITALS: BP 106/69
[2021-01-10] MEDS ORDERED: ASPirin 81 mg TAB PO SCH (10:00)
[2021-01-10] MEDS ORDERED: METOPROLOL SUCCINATE XL 50 MG TAB PO SCH (10:00)
[2021-01-10] MEDS ORDERED: CLOPIDOGREL BISULFATE 75 MG TAB PO SCH (10:00)
[2021-01-10] MEDS: RIVAROXABAN 10 MG TAB PO SCH (10:13)
[2021-01-10 12:33] VITALS: BP 124/81
[2021-01-10 12:36] VITALS: BP 106/69
[2021-01-10] MEDS ORDERED: ATORVASTATIN 20 MG TAB PO SCH (22:00)
== END 2021-01-10 13:20 | disposition home or self-care (01) | DRG 272 ==
LOC: CATH 06:32 → WEST WING 13:45
PROVIDERS: ADMIT Internal Medicine; ATTEND Internal Medicine
PROC: B41G1ZZ Fluoroscopy of Left Lower Extremity Arteries using Low Osmolar Contrast (ICD-10-PCS; principal; 2021-01-09)
PROC: 04CK3ZZ Extirpation of Matter from Right Femoral Artery, Percutaneous Approach (ICD-10-PCS; 2021-01-09)
PROC: 04FK3ZZ Fragmentation of Right Femoral Artery, Percutaneous Approach (ICD-10-PCS; 2021-01-09)
PROC: 047K3DZ Dilation of Right Femoral Artery with Intraluminal Device, Percutaneous Approach (ICD-10-PCS; 2021-01-09)
PROC: B41F1ZZ Fluoroscopy of Right Lower Extremity Arteries using Low Osmolar Contrast (ICD-10-PCS; 2021-01-09)
DX: E11.51 Type 2 diabetes mellitus with diabetic peripheral angiopathy without gangrene (principal); E78.5 Hyperlipidemia, unspecified; I70.211 Atherosclerosis of native arteries of extremities with intermittent claudication, right leg; I10 Essential (primary) hypertension; I25.10 Atherosclerotic heart disease of native coronary artery without angina pectoris; Z79.82 Long term (current) use of aspirin; Z83.3 Family history of diabetes mellitus; Z87.891 Personal history of nicotine dependence; Z95.1 Presence of aortocoronary bypass graft; Z79.899 Other long term (current) drug therapy
CPT/HCPCS: 36415; 37227; 80053; 80061; 82306; 83036; 83735; 83880; 84100; 84443; 84484; 84550; 85025; 85610; 85730; 87040; 99152; 99153; C1724; G0378; J2250; J3490; Q9967

== ENCOUNTER 2021-01-13 10:47 | Emergency (ER) | payer OTHER ==
[~2021-01-13] VITALS: Ht 172.7 cm; Wt 81.6 kg
[2021-01-13 15:00] VITALS: BP 102/40
== END 2021-01-13 16:32 | disposition home or self-care (01) ==
LOC: ER 10:47
DX: S30.1XXA Contusion of abdominal wall, initial encounter (principal); I25.2 Old myocardial infarction; E78.5 Hyperlipidemia, unspecified; E11.9 Type 2 diabetes mellitus without complications; Z88.6 Allergy status to analgesic agent; Z90.89 Acquired absence of other organs; X58.XXXA Exposure to other specified factors, initial encounter; Y93.89 Activity, other specified; Y92.89 Other specified places as the place of occurrence of the external cause; Y99.8 Other external cause status
CPT/HCPCS: 82962

== ENCOUNTER → 2021-01-23 | Outpatient (CLI) | payer OTHER ==
[~2021-01-23] MED LIST changes: +APIX2.5T PO; +LOSA25TA38 PO
[2021-01-23 11:47] LABS: Basophils # (auto) 0.1 10 ^3/uL (0-0.2); Basophils % (auto) 1.1 % (0.0-2.0); Eosinophils # (auto) 0.2 10 ^3/uL (0-0.8); Eosinophils % (auto) 2.6 % (0.0-7.0); Lymphocytes # (auto) 1.5 10 ^3/uL (0.4-5.4); Lymphocytes % (auto) 23.5 % (10.0-50.0); Mean Corpuscular Hemoglobin 30.9 pg (28.0-32.0); Mean Corpuscular Hgb Conc. 34.2 g/dL (32.0-36.0); Mean Corpuscular Volume 90.5 fL (80.0-100.0); Monocytes # (auto) 0.4 10 ^3/uL (0-1.3); Monocytes % (auto) 5.4 % (0.0-12.0); Neutrophils # (auto) 4.4 10 ^3/uL (1.6-8.6); Neutrophils % (auto) 67.4 % (37.0-80.0); Nucleated Red Blood Cells % 0.1 %; Red Blood Cells 3.87 10^6/uL (4.5-5.90); Red Cell Distribution Width 14.7 % (11.8-14.3); White Blood Cell 6.6 10^3/uL (4.4-10.8)
[2021-01-23 12:27] LABS: Calcium 8.4 mg/dL (8.5-10.1); Potassium 3.9 mmol/L (3.5-5.1)
[2021-01-23 12:30] LABS: BUN/Creatinine Ratio 14.1
== END | disposition home or self-care (01) ==
LOC: LAB 11:23
PROVIDERS: ATTEND Internal Medicine
DX: I12.9 Hypertensive chronic kidney disease with stage 1 through stage 4 chronic kidney disease, or unspecified chronic kidney disease (principal); N18.30 Chronic kidney disease, stage 3 unspecified; I25.10 Atherosclerotic heart disease of native coronary artery without angina pectoris
CPT/HCPCS: 36415; 80048; 82043; 85025

== ENCOUNTER 2021-01-25 03:09 | Observation (INO) | payer OTHER ==
[~2021-01-25] VITALS: Ht 172.7 cm; Wt 84.9 kg
[~2021-01-25 03:09] MED LIST changes: -APIX2.5T PO; -LOSA25TA38 PO
[2021-01-25] MEDS ORDERED: ASPirin 81 mg TAB PO ONE (03:30)
[2021-01-25 03:47] LABS: Basophils # (auto) 0 10 ^3/uL (0-0.2); Basophils % (auto) 0.7 % (0.0-2.0); Eosinophils # (auto) 0.3 10 ^3/uL (0-0.8); Eosinophils % (auto) 3.5 % (0.0-7.0); Hematocrit 38.4 % (41.0-53.0); Hemoglobin 12.8 g/dL (13.5-17.5); Lymphocytes # (auto) 2.4 10 ^3/uL (0.4-5.4); Lymphocytes % (auto) 32.2 % (10.0-50.0); Mean Corpuscular Hemoglobin 30.7 pg (28.0-32.0); Mean Corpuscular Hgb Conc. 33.3 g/dL (32.0-36.0); Mean Corpuscular Volume 92.2 fL (80.0-100.0); Monocytes # (auto) 0.5 10 ^3/uL (0-1.3); Monocytes % (auto) 7.5 % (0.0-12.0); Neutrophils # (auto) 4.1 10 ^3/uL (1.6-8.6); Neutrophils % (auto) 56.1 % (37.0-80.0); Nucleated Red Blood Cells % 0.1 %; Red Blood Cells 4.17 10^6/uL (4.5-5.90); Red Cell Distribution Width 14.5 % (11.8-14.3); White Blood Cell 7.3 10^3/uL (4.4-10.8)
[2021-01-25 04:07] LABS: Albumin 3.4 g/dL (3.4-5.0); Calcium 8.5 mg/dL (8.5-10.1); Potassium 3.8 mmol/L (3.5-5.1)
[2021-01-25 04:14] LABS: BUN/Creatinine Ratio 17.3; Bilirubin, Total 2.3 mg/dL (0.2-1.0); Total Protein 7.5 g/dL (6.4-8.2)
[2021-01-25 04:25] LABS: INR 1.06 (0.9-1.15); Partial Thromboplastin Time 27.2 sec (23.6-33.0)
[2021-01-25] MEDS ORDERED: SODIUM CHLORIDE 0.9% 1,000 ML IV ONE (09:45)
[2021-01-25] MEDS ORDERED: DOCUSATE SOD 100 MG CAP PO PRN (09:45)
[2021-01-25] MEDS ORDERED: PANTOPRAZOLE 40 MG/10 ML VIAL INJ IV ONE (09:45)
[2021-01-25] MEDS ORDERED: LORazepam 0.5 MG TAB PO PRN (09:45)
[2021-01-25] MEDS ORDERED: SUCRALFATE 1 GM/10 ML ORAL SUSP PO ONE (09:45)
[2021-01-25] MEDS ORDERED: ONDANSETRON HCL 4 MG/2 ML VIAL IV PRN (09:45)
[2021-01-25] MEDS ORDERED: NITROGLYCERIN 0.4 MG SL TAB SL PRN (09:45)
[2021-01-25] MEDS ORDERED: ATORVASTATIN 20 MG TAB PO ONE (09:45)
[2021-01-25] MEDS ORDERED: HYDROcodone-ACET 5/325MG TAB PO PRN (09:45)
[2021-01-25] MEDS ORDERED: ALUM & MAG HYDROX-SIMETH LIQ(MAALOX) 30 ML PO PRN (09:45)
[2021-01-25] MEDS ORDERED: MORPHINE SULFATE INJECTION 2 MG/ML SYRG IV PRN ×2 (09:45)
[2021-01-25] MEDS ORDERED: ACETAMINOPHEN 325 MG TAB PO PRN (09:45)
[2021-01-25 09:58] LABS: Urine Bacteria NONE SEEN /hpf (None Seen); Urine Blood Negative /uL (Negative); Urine Specific Gravity 1.018 (1.001-1.035); Urine WBC <1 /hpf (0 - 3)
[2021-01-25] MEDS: PANTOPRAZOLE 40 MG TAB PO SCH (12:15)
[2021-01-25 13:25] LABS: Amylase 70 U/L (25-115); Lipase 150 U/L (73-393)
[2021-01-25] MEDS: SODIUM CHLOR 0.9% PF (SALINE LOCK) 10ML VIAL/SYR IV SCH (14:22)
[2021-01-25] MEDS ORDERED: APIX2.5T PO (17:52)
[2021-01-25] MEDS ORDERED: LOSA25TA38 PO (17:53)
[2021-01-25 21:52] VITALS: BP 136/73
[2021-01-26 05:03] VITALS: BP 118/65
[2021-01-26 05:56] LABS: BUN/Creatinine Ratio 14.4; Bilirubin, Direct 0.4 mg/dL (0-0.2); Bilirubin, Total 2.7 mg/dL (0.2-1.0); Calcium 7.8 mg/dL (8.5-10.1); Total Protein 6.3 g/dL (6.4-8.2)
[2021-01-26] MEDS: SODIUM CHLOR 0.9% PF (SALINE LOCK) 10ML VIAL/SYR IV SCH ×2 (06:44→06:45)
[2021-01-26 09:00] VITALS: BP 141/73
[2021-01-26] MEDS: PANTOPRAZOLE 40 MG TAB PO SCH (09:38)
[2021-01-26 13:00] VITALS: BP 148/72
[2021-01-26 13:07] VITALS: BP 141/73
== END 2021-01-26 14:14 | disposition home or self-care (01) ==
LOC: ER 03:09 → TELE 09:31 → TELE-WESTW 16:53
PROVIDERS: ADMIT Internal Medicine; ATTEND Internal Medicine
DX: R10.13 Epigastric pain (principal); Z20.822 Contact with and (suspected) exposure to COVID-19; S30.1XXA Contusion of abdominal wall, initial encounter; I25.10 Atherosclerotic heart disease of native coronary artery without angina pectoris; M79.81 Nontraumatic hematoma of soft tissue; E11.9 Type 2 diabetes mellitus without complications; I73.9 Peripheral vascular disease, unspecified; I11.9 Hypertensive heart disease without heart failure; K80.20 Calculus of gallbladder without cholecystitis without obstruction; E78.5 Hyperlipidemia, unspecified; Z87.891 Personal history of nicotine dependence; Z79.82 Long term (current) use of aspirin; Z95.1 Presence of aortocoronary bypass graft; Z79.01 Long term (current) use of anticoagulants; Z79.899 Other long term (current) drug therapy; Z98.890 Other specified postprocedural states; X58.XXXA Exposure to other specified factors, initial encounter
CPT/HCPCS: 36415; 71045; 76705; 80053; 80076; 81001; 82150; 83690; 83735; 83880; 84484; 85025; 85610; 85730; 87426; 93306; 93926; 96374; 99285; C9113; G0378

== ENCOUNTER → 2021-01-29 | Outpatient (CLI) | payer OTHER ==
[~2021-01-29] MED LIST changes: +APIX2.5T PO; +LOSA25TA38 PO
[2021-01-29 15:44] LABS: Chloride 110 mmol/L (98-107); Potassium 4.4 mmol/L (3.5-5.1); Sodium 143 mmol/L (136-145)
[2021-01-29 15:45] LABS: Alanine Aminotransferase 28 U/L (16-61); Albumin 3.4 g/dL (3.4-5.0); Alkaline Phosphatase 116 U/L (45-117); Anion Gap 9 (5-15); Aspartate Aminotransferase 29 U/L (15-37); BUN/Creatinine Ratio 17.4; Bilirubin, Total 3.3 mg/dL (0.2-1.0); Blood Urea Nitrogen 28 mg/dL (7-18); Calcium 8.4 mg/dL (8.5-10.1); Carbon Dioxide 24 mmol/L (21-32); GFR African American 54 mL/min; GFR Non-African American 45 mL/min; Glucose 99 mg/dL (74-106); Total Protein 7.1 g/dL (6.4-8.2)
== END | disposition home or self-care (01) ==
LOC: LAB 14:34
PROVIDERS: ATTEND Internal Medicine
DX: I10 Essential (primary) hypertension (principal)
CPT/HCPCS: 36415; 80053

== ENCOUNTER 2021-08-19 10:38 | Inpatient (IN) | payer OTHER ==
[~2021-08-19] VITALS: Ht 167.6 cm; Wt 88.2 kg
[2021-08-19] MEDS ORDERED: MORPHINE SULFATE 4 MG/ML SYR/VIAL IV ONE (11:15)
[2021-08-19] MEDS ORDERED: ONDANSETRON HCL 4 MG/2 ML VIAL IV ONE (11:15)
[2021-08-19] MEDS ORDERED: PANTOPRAZOLE 40 MG/10 ML VIAL INJ IV ONE (11:15)
[2021-08-19] MEDS ORDERED: SODIUM CHLORIDE 0.9% 500 ML IVB ONE (11:15)
[2021-08-19 12:22] LABS: Basophils # (auto) 0 10 ^3/uL (0-0.2); Basophils % (auto) 0.5 % (0.0-2.0); Eosinophils # (auto) 0.2 10 ^3/uL (0-0.8); Eosinophils % (auto) 3.5 % (0.0-7.0); Hematocrit 44.2 % (41.0-53.0); Hemoglobin 14.9 g/dL (13.5-17.5); Lymphocytes # (auto) 1.6 10 ^3/uL (0.4-5.4); Lymphocytes % (auto) 23.3 % (10.0-50.0); Mean Corpuscular Hemoglobin 30.1 pg (28.0-32.0); Mean Corpuscular Hgb Conc. 33.8 g/dL (32.0-36.0); Mean Corpuscular Volume 89.2 fL (80.0-100.0); Monocytes # (auto) 0.6 10 ^3/uL (0-1.3); Monocytes % (auto) 8.2 % (0.0-12.0); Neutrophils # (auto) 4.4 10 ^3/uL (1.6-8.6); Neutrophils % (auto) 64.5 % (37.0-80.0); Red Blood Cells 4.95 10^6/uL (4.5-5.90); Red Cell Distribution Width 14.2 % (11.8-14.3); White Blood Cell 6.8 10^3/uL (4.4-10.8)
[2021-08-19 12:40] LABS: Albumin 3.5 g/dL (3.4-5.0); Calcium 8.8 mg/dL (8.5-10.1); Magnesium 2.1 mg/dL (1.6-2.6); Potassium 4.3 mmol/L (3.5-5.1)
[2021-08-19 12:45] LABS: BUN/Creatinine Ratio 12.5; Total Protein 7.7 g/dL (6.4-8.2)
[2021-08-19 14:26] LABS: Urine Bacteria NONE SEEN /hpf (None Seen); Urine Blood Negative /uL (Negative); Urine Mucus FEW (None Seen); Urine Specific Gravity 1.019 (1.001-1.035); Urine WBC <1 /hpf (0 - 3)
[2021-08-19] MEDS ORDERED: ONDANSETRON HCL 4 MG/2 ML VIAL IV PRN (17:00)
[2021-08-19] MEDS: InsuLIN REG 1unit/0.01ml Soln (100units/ml) SC SCH ×2 (17:00→22:00)
[2021-08-19] MEDS ORDERED: DEXTROSE (50%) 50ML SYRG IV PRN (17:00)
[2021-08-19] MEDS: ACCU-CHEK COMFORT CURVE STRIP VI SCH ×2 (17:00→22:00)
[2021-08-19] MEDS ORDERED: MORPHINE SULFATE INJ 2 MG/ml SYRG IV PRN (17:00)
[2021-08-19 17:56] LABS: INR 2.07 (0.9-1.15)
[2021-08-19 17:57] LABS: Cholesterol 74 mg/dL (< 200); HDL Cholesterol 34 mg/dL (40-59); LDL Cholesterol 36 mg/dL (< 100); Triglycerides 126 mg/dL (< 150)
[2021-08-19] MEDS ORDERED: hydrALAZINE HCL 20 MG/ML VL IV PRN (18:30)
[2021-08-19] MEDS: metroNIDAZOLE 500MG/100ML 100 ML IV SCH (22:41)
[2021-08-19 23:30] VITALS: BP 116/65
[2021-08-20] MEDS ORDERED: CAR3125T PO (03:54)
[2021-08-20] MEDS ORDERED: ATOR40TA52 PO (03:54)
[2021-08-20] MEDS ORDERED: EZET10TA22 PO (03:54)
[2021-08-20 04:44] VITALS: BP 129/59
[2021-08-20] MEDS: metroNIDAZOLE 500MG/100ML 100 ML IV SCH ×3 (05:46→22:25)
[2021-08-20 05:51] LABS: Basophils # (auto) 0 10 ^3/uL (0-0.2); Basophils % (auto) 0.3 % (0.0-2.0); Eosinophils # (auto) 0.2 10 ^3/uL (0-0.8); Eosinophils % (auto) 3.4 % (0.0-7.0); Hematocrit 41.5 % (41.0-53.0); Lymphocytes # (auto) 1.8 10 ^3/uL (0.4-5.4); Lymphocytes % (auto) 30.4 % (10.0-50.0); Mean Corpuscular Hemoglobin 30.5 pg (28.0-32.0); Mean Corpuscular Hgb Conc. 33.8 g/dL (32.0-36.0); Mean Corpuscular Volume 90.4 fL (80.0-100.0); Monocytes # (auto) 0.5 10 ^3/uL (0-1.3); Monocytes % (auto) 7.7 % (0.0-12.0); Neutrophils # (auto) 3.5 10 ^3/uL (1.6-8.6); Neutrophils % (auto) 58.2 % (37.0-80.0); Nucleated Red Blood Cells % 0.1 %; Red Blood Cells 4.59 10^6/uL (4.5-5.90); Red Cell Distribution Width 14.4 % (11.8-14.3)
[2021-08-20 05:59] LABS: Calcium 8.2 mg/dL (8.5-10.1); Potassium 3.7 mmol/L (3.5-5.1)
[2021-08-20 06:05] LABS: Albumin 2.9 g/dL (3.4-5.0); BUN/Creatinine Ratio 12.6; Bilirubin, Total 1.8 mg/dL (0.2-1.0); Total Protein 6.5 g/dL (6.4-8.2)
[2021-08-20] MEDS: InsuLIN REG 1unit/0.01ml Soln (100units/ml) SC SCH ×4 (06:31→23:10)
[2021-08-20] MEDS: ACCU-CHEK COMFORT CURVE STRIP VI SCH ×4 (06:31→23:10)
[2021-08-20 09:00] VITALS: BP 123/65
[2021-08-20 13:00] VITALS: BP 126/66
[2021-08-20 17:00] VITALS: BP 130/67
[2021-08-21 01:34] VITALS: BP 144/62
[2021-08-21 05:06] VITALS: BP 133/79
[2021-08-21] MEDS: metroNIDAZOLE 500MG/100ML 100 ML IV SCH ×3 (05:31→22:57)
[2021-08-21 05:36] LABS: Basophils # (auto) 0 10 ^3/uL (0-0.2); Basophils % (auto) 0.6 % (0.0-2.0); Eosinophils # (auto) 0.2 10 ^3/uL (0-0.8); Hematocrit 41.8 % (41.0-53.0); Hemoglobin 14.4 g/dL (13.5-17.5); Lymphocytes # (auto) 1.9 10 ^3/uL (0.4-5.4); Lymphocytes % (auto) 28.9 % (10.0-50.0); Mean Corpuscular Hemoglobin 30.4 pg (28.0-32.0); Mean Corpuscular Hgb Conc. 34.4 g/dL (32.0-36.0); Mean Corpuscular Volume 88.2 fL (80.0-100.0); Monocytes # (auto) 0.5 10 ^3/uL (0-1.3); Monocytes % (auto) 7.5 % (0.0-12.0); Neutrophils # (auto) 3.9 10 ^3/uL (1.6-8.6); Red Blood Cells 4.74 10^6/uL (4.5-5.90); Red Cell Distribution Width 14.2 % (11.8-14.3); White Blood Cell 6.5 10^3/uL (4.4-10.8)
[2021-08-21 05:51] LABS: INR 1.12 (0.9-1.15); Partial Thromboplastin Time 28.4 sec (23.6-33.0)
[2021-08-21 05:54] LABS: Albumin 3.2 g/dL (3.4-5.0); Calcium 8.7 mg/dL (8.5-10.1); Potassium 3.7 mmol/L (3.5-5.1)
[2021-08-21 05:59] LABS: BUN/Creatinine Ratio 8.7; Total Protein 6.8 g/dL (6.4-8.2)
[2021-08-21] MEDS: InsuLIN REG 1unit/0.01ml Soln (100units/ml) SC SCH ×4 (07:00→22:58)
[2021-08-21] MEDS: ACCU-CHEK COMFORT CURVE STRIP VI SCH ×4 (07:43→22:57)
[2021-08-21 09:15] VITALS: BP 140/62
[2021-08-21] MEDS ORDERED: MIDAZOLAM HCL 2MG/2ML 2ml VIAL (1mg/ml) ONE (10:26)
[2021-08-21] MEDS ORDERED: NEOSTIGMINE 1 MG/ML INJ (10mg/10ML VIAL) ONE (10:26)
[2021-08-21] MEDS ORDERED: ETOMIDATE (2MG/ML) 20ML VIAL IV ONE (10:26)
[2021-08-21] MEDS ORDERED: GLYCOPYRROLATE 0.2 MG/ML 1ML VIAL ONE (10:26)
[2021-08-21] MEDS ORDERED: SODIUM CHLORIDE LOCK 10 ML ONE (10:26)
[2021-08-21] MEDS ORDERED: fentaNYL CITRATE 100 MCG/2 ML VL ONE (10:26)
[2021-08-21] MEDS ORDERED: DexAMETHasone SOD PHOS 10MG/1ML VIAL INJ ONE (10:26)
[2021-08-21] MEDS ORDERED: ONDANSETRON HCL 4 MG/2 ML VIAL ONE (10:26)
[2021-08-21] MEDS ORDERED: ceFAZolin 1GM/50ML 100 ML IV ONE (10:31)
[2021-08-21] MEDS ORDERED: ROCURONIUM 10MG/ML 10ML VIAL IV ONE (10:32)
[2021-08-21] MEDS ORDERED: DOXAPRAM HCL 20 MG/ML 20ML VIAL INJ IV ONE (10:34)
[2021-08-21] MEDS ORDERED: LIDOCAINE 1%-Mpf/Epinephrine 1:200,000 ONE (10:53)
[2021-08-21] MEDS ORDERED: BUPIVACAINE 0.25% INJ 50ML VIAL ONE (10:53)
[2021-08-21] MEDS ORDERED: SUCCINYLCHOLINE CHLORIDE 20 MG/ML 10ML VIAL IV ONE (13:31)
[2021-08-21] MEDS ORDERED: HYDROmorphone HCL 2 MG/ML VL/or syr IV PRN ×2 (13:45)
[2021-08-21] MEDS ORDERED: ACCU-CHEK COMFORT CURVE STRIP VI ONE (13:45)
[2021-08-21] MEDS ORDERED: METOCLOPRAMIDE HCL 5MG/ml INJ 2ml VIAL IV PRN (13:45)
[2021-08-21] MEDS ORDERED: MORPHINE SULFATE 4 MG/ML SYR/VIAL IV PRN (13:45)
[2021-08-21 17:02] VITALS: BP 140/70
[2021-08-21 22:00] VITALS: BP 133/76
[2021-08-22 05:00] VITALS: BP 140/65
[2021-08-22] MEDS: metroNIDAZOLE 500MG/100ML 100 ML IV SCH ×3 (05:42→21:39)
[2021-08-22 05:52] LABS: Basophils # (auto) 0 10 ^3/uL (0-0.2); Basophils % (auto) 0.3 % (0.0-2.0); Eosinophils # (auto) 0 10 ^3/uL (0-0.8); Hematocrit 41.1 % (41.0-53.0); Hemoglobin 13.9 g/dL (13.5-17.5); Lymphocytes % (auto) 8.2 % (10.0-50.0); Mean Corpuscular Hemoglobin 30.1 pg (28.0-32.0); Mean Corpuscular Hgb Conc. 33.9 g/dL (32.0-36.0); Mean Corpuscular Volume 88.6 fL (80.0-100.0); Monocytes # (auto) 0.5 10 ^3/uL (0-1.3); Monocytes % (auto) 3.9 % (0.0-12.0); Neutrophils # (auto) 10.8 10 ^3/uL (1.6-8.6); Neutrophils % (auto) 87.6 % (37.0-80.0); Red Blood Cells 4.63 10^6/uL (4.5-5.90); Red Cell Distribution Width 13.9 % (11.8-14.3); White Blood Cell 12.3 10^3/uL (4.4-10.8)
[2021-08-22 06:12] LABS: Calcium 8.5 mg/dL (8.5-10.1); Potassium 3.8 mmol/L (3.5-5.1)
[2021-08-22 06:17] LABS: Albumin 3.1 g/dL (3.4-5.0); BUN/Creatinine Ratio 12.6; Bilirubin, Total 2.3 mg/dL (0.2-1.0); Total Protein 6.9 g/dL (6.4-8.2)
[2021-08-22] MEDS: ACCU-CHEK COMFORT CURVE STRIP VI SCH ×4 (06:56→21:40)
[2021-08-22] MEDS: InsuLIN REG 1unit/0.01ml Soln (100units/ml) SC SCH ×4 (06:57→21:57)
[2021-08-22 09:10] VITALS: BP 130/68
[2021-08-22] MEDS: cefTRIAXone 1GM/50ML D5W 50 ML IV SCH (10:13)
[2021-08-22] MEDS: PANTOPRAZOLE 40 MG/10 ML VIAL INJ IV SCH (10:13)
[2021-08-22 12:59] VITALS: BP 140/66
[2021-08-22 17:06] VITALS: BP 139/67
[2021-08-22 22:00] VITALS: BP 144/77
[2021-08-23 05:00] VITALS: BP 139/73
[2021-08-23] MEDS: metroNIDAZOLE 500MG/100ML 100 ML IV SCH ×3 (05:37→21:41)
[2021-08-23 05:40] LABS: Potassium 3.6 mmol/L (3.5-5.1)
[2021-08-23 06:01] LABS: BUN/Creatinine Ratio 11.9; Bilirubin, Direct 0.4 mg/dL (0-0.2); Bilirubin, Total 1.8 mg/dL (0.2-1.0); Calcium 8.2 mg/dL (8.5-10.1); Total Protein 6.6 g/dL (6.4-8.2)
[2021-08-23] MEDS: InsuLIN REG 1unit/0.01ml Soln (100units/ml) SC SCH ×4 (06:17→21:41)
[2021-08-23] MEDS: ACCU-CHEK COMFORT CURVE STRIP VI SCH ×4 (06:17→21:41)
[2021-08-23 09:07] VITALS: BP 132/79
[2021-08-23] MEDS: cefTRIAXone 1GM/50ML D5W 50 ML IV SCH (09:35)
[2021-08-23] MEDS: PANTOPRAZOLE 40 MG/10 ML VIAL INJ IV SCH (09:35)
[2021-08-23 13:36] VITALS: BP 141/69
[2021-08-23] MEDS ORDERED: SODIUM CHLORIDE 0.9% 1,000 ML IV ONE (14:15)
[2021-08-23 17:10] VITALS: BP 146/84
[2021-08-23 22:12] VITALS: BP 147/67
[2021-08-24 05:38] VITALS: BP 136/75
[2021-08-24] MEDS: InsuLIN REG 1unit/0.01ml Soln (100units/ml) SC SCH ×3 (05:56→17:18)
[2021-08-24] MEDS: ACCU-CHEK COMFORT CURVE STRIP VI SCH ×3 (05:56→17:19)
[2021-08-24] MEDS: metroNIDAZOLE 500MG/100ML 100 ML IV SCH (05:56)
[2021-08-24 06:43] LABS: Basophils # (auto) 0 10 ^3/uL (0-0.2); Basophils % (auto) 0.6 % (0.0-2.0); Eosinophils # (auto) 0.2 10 ^3/uL (0-0.8); Hematocrit 41.8 % (41.0-53.0); Hemoglobin 13.8 g/dL (13.5-17.5); Lymphocytes # (auto) 2.2 10 ^3/uL (0.4-5.4); Lymphocytes % (auto) 25.1 % (10.0-50.0); Mean Corpuscular Hemoglobin 29.7 pg (28.0-32.0); Mean Corpuscular Hgb Conc. 33.1 g/dL (32.0-36.0); Mean Corpuscular Volume 89.9 fL (80.0-100.0); Monocytes # (auto) 0.7 10 ^3/uL (0-1.3); Monocytes % (auto) 7.7 % (0.0-12.0); Neutrophils # (auto) 5.6 10 ^3/uL (1.6-8.6); Neutrophils % (auto) 64.6 % (37.0-80.0); Red Blood Cells 4.65 10^6/uL (4.5-5.90); Red Cell Distribution Width 14.2 % (11.8-14.3); White Blood Cell 8.6 10^3/uL (4.4-10.8)
[2021-08-24 07:06] LABS: Potassium 3.5 mmol/L (3.5-5.1)
[2021-08-24 07:18] LABS: Bilirubin, Total 1.8 mg/dL (0.2-1.0); Calcium 8.2 mg/dL (8.5-10.1); Magnesium 2.3 mg/dL (1.6-2.6); Total Protein 6.7 g/dL (6.4-8.2)
[2021-08-24 09:00] VITALS: BP 131/72
[2021-08-24] MEDS: cefTRIAXone 1GM/50ML D5W 50 ML IV SCH (09:25)
[2021-08-24] MEDS: PANTOPRAZOLE 40 MG/10 ML VIAL INJ IV SCH (09:25)
[2021-08-24 13:00] VITALS: BP 151/73
[2021-08-24 16:46] VITALS: BP 153/68
[2021-08-24] MEDS ORDERED: METR500T PO (16:59)
== END 2021-08-24 18:50 | disposition home or self-care (01) | DRG 417 ==
LOC: ER 10:44 → OVERFLOW 16:56 → EAST 23:30
PROVIDERS: ADMIT Registered Nurse; ATTEND Internal Medicine
PROC: 0FT44ZZ Resection of Gallbladder, Percutaneous Endoscopic Approach (ICD-10-PCS; principal; 2021-08-21 11:57)
DX: K80.10 Calculus of gallbladder with chronic cholecystitis without obstruction (principal); N17.0 Acute kidney failure with tubular necrosis; K76.0 Fatty (change of) liver, not elsewhere classified; K82.8 Other specified diseases of gallbladder; N18.31 Chronic kidney disease, stage 3a; I25.10 Atherosclerotic heart disease of native coronary artery without angina pectoris; E78.5 Hyperlipidemia, unspecified; Z20.822 Contact with and (suspected) exposure to COVID-19; E11.22 Type 2 diabetes mellitus with diabetic chronic kidney disease; E66.01 Morbid (severe) obesity due to excess calories; I12.9 Hypertensive chronic kidney disease with stage 1 through stage 4 chronic kidney disease, or unspecified chronic kidney disease; K66.0 Peritoneal adhesions (postprocedural) (postinfection); E11.51 Type 2 diabetes mellitus with diabetic peripheral angiopathy without gangrene; Z83.3 Family history of diabetes mellitus; Z87.891 Personal history of nicotine dependence; I25.2 Old myocardial infarction; Z79.01 Long term (current) use of anticoagulants; Z80.9 Family history of malignant neoplasm, unspecified; Z95.1 Presence of aortocoronary bypass graft; Z68.31 Body mass index [BMI] 31.0-31.9, adult
CPT/HCPCS: 36415; 71045; 74181; 76705; 80053; 80061; 81001; 82150; 82248; 82962; 83036; 83690; 83735; 84484; 85025; 85610; 85730; 86850; 86900; 86901; 93005; 96361; 96374; 96375; C9113; G0378; J0330; J0690; J0696; J1100; J1815; J2250; J2405; J3490

== ENCOUNTER → 2021-10-21 | Outpatient (CLI) | payer OTHER ==
[~2021-10-21] MED LIST changes: -ASPI-123 PO; -ATOR-47 PO; +ATOR40TA52 PO; +CAR3125T PO; -CARV3.1240 PO; +EZET10TA22 PO; -LOSA25TA38 PO; +METR500T PO
== END | disposition home or self-care (01) ==
LOC: LAB 11:52
PROVIDERS: ATTEND Internal Medicine
DX: E11.9 Type 2 diabetes mellitus without complications (principal)
CPT/HCPCS: 36415; 83036; 84153

== ENCOUNTER → 2022-02-17 | Outpatient (CLI) | payer OTHER | END | disposition home or self-care (01) | LOC: LAB 11:44 | PROVIDERS: ATTEND Internal Medicine | DX: Z12.11 Encounter for screening for malignant neoplasm of colon (principal); R73.03 Prediabetes | CPT/HCPCS: 82043; 82270 ==

== ENCOUNTER → 2022-02-26 | Outpatient (CLI) | payer OTHER | END | disposition home or self-care (01) | LOC: XYW 09:59 | PROVIDERS: ATTEND Internal Medicine | DX: I73.9 Peripheral vascular disease, unspecified (principal) | CPT/HCPCS: 93926 ==

== ENCOUNTER → 2022-04-11 | Outpatient (CLI) | payer OTHER ==
[2022-04-11 15:13] LABS: BUN/Creatinine Ratio 13.9; Calcium 8.7 mg/dL (8.5-10.1); Potassium 4.2 mmol/L (3.5-5.1)
== END | disposition home or self-care (01) ==
LOC: LAB 14:03
PROVIDERS: ATTEND Internal Medicine
DX: M79.642 Pain in left hand (principal); M25.552 Pain in left hip
CPT/HCPCS: 36415; 80048; 83036; 85652; 86038; 86431

== ENCOUNTER → 2022-09-24 | Outpatient (CLI) | payer OTHER | END | disposition home or self-care (01) | LOC: Rad HDHVI 08:47 | PROVIDERS: ATTEND Internal Medicine Cardiovascular Disease | DX: I73.9 Peripheral vascular disease, unspecified (principal); E78.5 Hyperlipidemia, unspecified | CPT/HCPCS: 93880 ==

== ENCOUNTER → 2022-12-01 | Outpatient (CLI) | payer OTHER ==
[~2022-12-01] MED LIST changes: +INSU100I70 SC; +METF-370 PO
[2022-12-01 09:49] VITALS: BP 140/70; PULSE 77; RESP 16; O2SAT 95
[2022-12-01 10:00] VITALS: BP 142/70; PULSE 79; RESP 16; O2SAT 95
== END | disposition home or self-care (01) ==
LOC: CHF HDHVI 09:43
PROVIDERS: ATTEND Internal Medicine Cardiovascular Disease
DX: Z01.818 Encounter for other preprocedural examination (principal); I70.202 Unspecified atherosclerosis of native arteries of extremities, left leg
CPT/HCPCS: 93005; G0463

== ENCOUNTER → 2023-02-27 | Outpatient (CLI) | payer OTHER ==
[~2023-02-27] MED LIST changes: -METR500T PO
[2023-02-27 09:24] LABS: Urine WBC None Seen /hpf (0 - 3)
[2023-02-27 09:55] LABS: Urine Bacteria NONE SEEN /hpf (None Seen); Urine Blood Negative /uL (Negative); Urine Clarity Clear (Clear); Urine Color Yellow (Yellow); Urine Mucus FEW (None Seen); Urine Protein, UAD TRACE (Negative); Urine Specific Gravity 1.022 (1.001-1.035); Urine Urobilinogen Normal (Negative)
[2023-02-27 09:56] LABS: Anion Gap 10 (5-15); Carbon Dioxide 23 mmol/L (20-30); Chloride 108 mmol/L (98-107); Potassium 4.1 mmol/L (3.5-5.1); Sodium 141 mmol/L (136-145)
[2023-02-27 09:57] LABS: Calcium 9.5 mg/dL (8.5-10.1)
[2023-02-27 10:02] LABS: BUN/Creatinine Ratio 11.2 (10.0-20.0); Blood Urea Nitrogen 14 mg/dL (9-23); Glucose 177 mg/dL (74-106)
[2023-02-27 13:45] LABS: Creatinine, Urine 148.65 mg/dL (30.0-125.0)
== END | disposition home or self-care (01) ==
LOC: LAB 09:15
PROVIDERS: ATTEND Internal Medicine
DX: E11.9 Type 2 diabetes mellitus without complications (principal)
CPT/HCPCS: 36415; 80048; 81001; 82043; 82570

== ENCOUNTER → 2023-07-17 | Outpatient (CLI) | payer OTHER ==
[~2023-07-17] VITALS: Ht 172.7 cm; Wt 88.0 kg
== END | disposition home or self-care (01) ==
LOC: Rad HDHVI 08:08
PROVIDERS: ATTEND Internal Medicine Cardiovascular Disease
DX: I25.10 Atherosclerotic heart disease of native coronary artery without angina pectoris (principal); I25.2 Old myocardial infarction; I12.9 Hypertensive chronic kidney disease with stage 1 through stage 4 chronic kidney disease, or unspecified chronic kidney disease; E11.22 Type 2 diabetes mellitus with diabetic chronic kidney disease; N18.9 Chronic kidney disease, unspecified; I73.9 Peripheral vascular disease, unspecified; Z95.1 Presence of aortocoronary bypass graft
CPT/HCPCS: 78452; 93017; 96374; A9500

== ENCOUNTER → 2023-10-05 | Outpatient (CLI) | payer OTHER ==
[2023-10-05 10:26] LABS: Chloride 108 mmol/L (98-107); Sodium 140 mmol/L (136-145)
[2023-10-05 10:27] LABS: Anion Gap 6 (5-15); Calcium 9.7 mg/dL (8.7-10.4); Carbon Dioxide 26 mmol/L (20-30)
[2023-10-05 10:30] LABS: Creatinine, Urine 191.12 mg/dL (30.0-125.0)
[2023-10-05 10:32] LABS: Glucose 217 mg/dL (74-106)
[2023-10-05 10:33] LABS: Blood Urea Nitrogen 16 mg/dL (9-23)
== END | disposition home or self-care (01) ==
LOC: LAB 09:04
PROVIDERS: ATTEND Internal Medicine
DX: E11.9 Type 2 diabetes mellitus without complications (principal)
CPT/HCPCS: 36415; 80048; 82043; 82570; 83036; 84153

== ENCOUNTER → 2024-01-05 | Outpatient (CLI) | payer OTHER ==
[2024-01-05 09:10] LABS: LDL Cholesterol 25 mg/dL (< 100); Triglycerides 109 mg/dL (< 150)
[2024-01-05 09:12] LABS: Cholesterol 83 mg/dL (< 200); HDL Cholesterol 35 mg/dL (40-59)
== END | disposition home or self-care (01) ==
LOC: LAB 08:42
PROVIDERS: ATTEND Internal Medicine
DX: E11.9 Type 2 diabetes mellitus without complications (principal)
CPT/HCPCS: 36415; 80061; 83036

== ENCOUNTER 2024-04-18 22:01 | Inpatient (IN) | payer OTHER ==
[~2024-04-18] VITALS: Ht 172.7 cm; Wt 84.5 kg
--- NOTE | 2024-04-19 00:01 | ED.PDOC ---
History of Present Illness HPI Comments 79 y/o M, with a history of angina, CABG, CAD, CA, CKF, DM, HLD, HTN, DE, cholecystectomy, right lower extremity stents presents with c/o irregular heart beat, chest pain, shortness of breath and generalized weakness. Patient states he has been feeling his heart skipping intermittently for the past 2 weeks. The symptoms usually last a few minutes, then spontaneously resolved. They are independent of activity. Patient does report associated chest pain described as pressure, shortness a breath and generalized weakness when the symptoms are present. He denies any symptoms currently, however did have symptoms today prior to come to the ER. He denies any nausea, vomiting, diaphoresis, abdominal pain or edema. Chief Complaint: Palpitations Time Seen by MD: 22:40 Primary Care Provider: JUDE ALBARADO Reviewed Notes: Nurses Notes, Medications, Allergies Allergies: Coded Allergies: NO KNOWN ALLERGIES (Unverified , 08/21/21) Home Meds Reported Medications Insulin Glargine-Yfgn (Insulin Glargine) 100 Unit/Ml Inj, 20 UNIT SC DAILY for diabetes, INJ 12/01/22 Metformin Hydrochloride (Metformin Hcl) 500 Mg Tab, 250 MG PO BID for diabetes for 30 Days, MG 12/01/22 Atorvastatin Calcium (ATORVASTATIN CALCIUM) 40 Mg Tab, 1 TAB PO DAILY for HIGH CHOLESTEROL, #30 TAB 5 Refills 08/20/21 Carvedilol (Coreg) 3.125 Mg Tab, 1 TAB PO BID for HTN, #180 TAB 1 Refill 08/20/21 Ezetimibe (Zetia) 10 Mg Tab, 1 TAB PO DAILY for HIGH CHOLESTEROL, #30 TAB 5 Refills 08/20/21 Apixaban Base (ELIQUIS) 2.5 Mg Tab, 2.5 MG PO BID for stop on 12/03/22, TAB 01/25/21 Information Source: Patient Mode of Arrival: Ambulatory Severity: Moderate Timing: Hours Duration: Since onset Prehospital treatment: None Past Medical History PAST MEDICAL HISTORY: Angina, CAD, Cancer, CKF, DM, High Lipids, HTN, DE Past Medical History (Other): angina, CABG, CAD, CA, CKF, DM, HLD, HTN, DE, cholecystectomy, and right-leg stents Surgical History: CABG (4x), Cholecystectomy, Tonsillectomy Surgical History (Other): right-leg stents, eye surgery Family History Family History: Family hx of DM, Family hx of Cancer, Family hx of heart leticia Social History Smoker: Quit Greater Than 1 Year Alcohol: Denies ETOH Use Drugs: Denies Drug Use Lives In: Home All Other Systems: Reviewed and Negative (Comprehensive systems review obtained and negative except for what is stated in the HPI.) Physical Exam General Appearance: No Apparent Distress HEENT: Other (Pupils and face symmetric. Moist mucous membranes.) Neck: Full Range of Motion, Normal Inspection Respiratory: Lungs Clear, No Accessory Muscle Use, No Respiratory Distress, Normal Breath Sounds Cardiovascular: No Edema, No JVD, Regular Rate/Rhythm Breast Exam: Deferred Gastrointestinal: Non Tender, Soft Genitalia: Deferred Pelvic: Deferred Rectal: Deferred Extremities: Normal inspection, Normal range of motion, Non-tender, No pedal edema Neurologic: Alert (Oriented x4), Normal Affect, Normal Mood, Other (Ambulatory without difficulty. No gross focal deficit.) Cerebellar Function: NOT DONE Reflexes: NOT DONE Skin: Dry, Normal Color, Warm Lymphatic: NOT DONE Was a procedure done? Was a procedure done?: No EKG EKG : Pulse Rate (adult): 81 Comments Sinus rhythm, rate 81, normal intervals, left axis deviation, old inferior infarct, occasional PACs, no ST/T changes. Differential Dx Considerations may include: Arrhythmia, DE, ACS, chest wall pain, anemia, electrolyte imbalance, hypovolemia, anxiety, PACs, PVCs, among others X-Ray, Labs, Meds, VS Vital Signs Date Time Temp Pulse Resp B/P (MAP) Pulse Ox O2 Delivery O2 Flow Rate FiO2 04/19/24 00:01 81 04/18/24 22:20 97.7 81 14 150/70 (96) 95 04/18/24 22:07 81 Lab Test 04/19/24 01:12 04/19/24 00:20 Range/Units Troponin I High Sensitivity 7 6 </=54 ng/L White Blood Count 9.9 4.4-10.8 10^3/uL Red Blood Count 5.04 4.5-5.90 10^6/uL Hemoglobin 15.3 13.5-17.5 g/dL Hematocrit 46.1 41.0-53.0 % Mean Corpuscular Volume 91.6 80.0-100.0 fL Mean Corpuscular Hemoglobin 30.4 28.0-32.0 pg Mean Corpuscular Hemoglobin Concent 33.2 32.0-36.0 g/dL Red Cell Distribution Width 13.9 11.8-14.3 % Platelet Count 174 140-450 10^3/uL Mean Platelet Volume 8.1 6.9-10.8 fL Neutrophils (%) (Auto) 55.3 37.0-80.0 % Lymphocytes (%) (Auto) 32.8 10.0-50.0 % Monocytes (%) (Auto) 8.5 0.0-12.0 % Eosinophils (%) (Auto) 2.3 0.0-7.0 % Basophils (%) (Auto) 1.1 0.0-2.0 % Neutrophils # (Auto) 5.5 1.6-8.6 10 ^3/uL Lymphocytes # (Auto) 3.2 0.4-5.4 10 ^3/uL Monocytes # (Auto) 0.8 0-1.3 10 ^3/uL Eosinophils # (Auto) 0.2 0-0.8 10 ^3/uL Basophils # (Auto) 0.1 0-0.2 10 ^3/uL Nucleated Red Blood Cells 0.1 % Sodium Level 142 136-145 mmol/L Potassium Level 4.8 3.5-5.1 mmol/L Chloride Level 105 98-107 mmol/L Carbon Dioxide Level 28 20-31 mmol/L Anion Gap 9 5-15 Blood Urea Nitrogen 24 H 9-23 mg/dL Creatinine 1.29 0.700-1.30 mg/dL Glomerular Filtration Rate Calc 57 >90 mL/min BUN/Creatinine Ratio 18.6 10.0-20.0 Serum Glucose 115 H 74-106 mg/dL Calcium Level 10.7 H 8.7-10.4 mg/dL B-Type Natriuretic Peptide 20.05 0-100 pg/mL PROCEDURE(s): CXRP - CHEST PORTABLE REASON: palpitations cp ORDER NUMBER(s): [id number], ACCESSION NUMBER(s): [id number] CHEST RADIOGRAPH Indication: palpitations cp Technique: Single frontal view of the chest was obtained Comparison: CXRP on DOS: 08/19/21, CHEST PORTABLE on DOS: 08/19/21, CHEST XRAY 1 VIEW on DOS: 11/26/21 FINDINGS: Lines and Tubes: None Lungs: Clear Pleura: No effusion. No pneumothorax. Cardiomediastinal contours: Post CABG. Bones: Unremarkable IMPRESSION: Clear lungs. X-Ray, Labs, Meds, VS Comment 79-year-old male with a history of hypertension, dyslipidemia, diabetes, CAD and peripheral vascular disease complaining of palpitations, chest pain, shortness of breath and generalized weakness Vitals remarkable for BP 150/70 Exam unremarkable Rhythm strip independently interpreted by me: Sinus rhythm, rate 81, occasional PACs, no PVCs Chest x-ray unremarkable CBC unremarkable, metabolic panel remarkable for BUN of 24, 2 serial troponins negative, BNP normal Patient treated with the following in the ED: 1 L 0.9 normal saline IV bolus On re-evaluation, patient is not experiencing palpitations, chest pain or shortness a breath Patient has an extensive cardiac history and heart score is 6. Plan is to admit the patient for Cardiology evaluation. Time of 1ST Reevaluation: 23:10 Reevaluation 1ST: Unchanged Patient Education/Counseling: Diagnosis, Treatment Family Education/Counseling: No Family Present Departure 1 Departure Time of Disposition: 02:05 Impression: Primary Impression: Palpitations Additional Impression: Chest pain with high risk for cardiac etiology Disposition: 09 ADMITTED INPATIENT Admit to: [facility] Condition: Guarded Critical Care Note Critical Care Time?: No Stability Stability form required: No Heart Score Heart Score: Heart Score Response (Comments) Value History Highly Suspicious 2 EKG Normal 0 Age >65 2 Risk Factors >3 or Hx ASHD 2 Troponin Normal limit 0 Total 6 I personally scribed for TANISHA BARRIENTOS MD ([email or web address]) on 04/19/24 at 00:01. Electronically submitted by Kevin Campos ([email or web address]). TANISHA BARRIENTOS MD Apr 19, 2024 00:01
--- NOTE | 2024-04-19 00:02 | ECG ---
[facility] Test Date: 2024-04-18 Test Time: 22:07:41 Pat Name: KAYLA TIERNEY Department: ED Room: 0280T Gender: M Enrolled Agent: : [id number] Requested By: TANISHA SHAY Order Number: [id number] Reading MD: Giuliano James Measurements Intervals [place] Rate: 81 P: 71 MA: 142 QRS: -1 QRSD: 94 T: 50 QT: 373 QTc: 433 Interpretive Statements Sinus rhythm Atrial premature complex Electronically Signed On 04-21-2024 22:02:57 PST by Giuliano James Please click the below link to view image of tracing.
[2024-04-19 00:32] LABS: Basophils # (auto) 0.1 10 ^3/uL (0-0.2); Basophils % (auto) 1.1 % (0.0-2.0); Eosinophils # (auto) 0.2 10 ^3/uL (0-0.8); Eosinophils % (auto) 2.3 % (0.0-7.0); Hematocrit 46.1 % (41.0-53.0); Hemoglobin 15.3 g/dL (13.5-17.5); Lymphocytes # (auto) 3.2 10 ^3/uL (0.4-5.4); Lymphocytes % (auto) 32.8 % (10.0-50.0); Mean Corpuscular Hemoglobin 30.4 pg (28.0-32.0); Mean Corpuscular Hgb Conc. 33.2 g/dL (32.0-36.0); Mean Corpuscular Volume 91.6 fL (80.0-100.0); Monocytes # (auto) 0.8 10 ^3/uL (0-1.3); Monocytes % (auto) 8.5 % (0.0-12.0); Neutrophils # (auto) 5.5 10 ^3/uL (1.6-8.6); Neutrophils % (auto) 55.3 % (37.0-80.0); Nucleated Red Blood Cells % 0.1 %; Platelet Count (auto) 174 10^3/uL (140-450); Red Blood Cells 5.04 10^6/uL (4.5-5.90); Red Cell Distribution Width 13.9 % (11.8-14.3); White Blood Cell 9.9 10^3/uL (4.4-10.8)
--- NOTE | 2024-04-19 00:43 | DVH ---
CHEST RADIOGRAPH Indication: palpitations cp Technique: Single frontal view of the chest was obtained Comparison: CXRP on DOS: 08/19/21, CHEST PORTABLE on DOS: 08/19/21, CHEST XRAY 1 VIEW on DOS: 01/25/21 FINDINGS: Lines and Tubes: None Lungs: Clear Pleura: No effusion. No pneumothorax. Cardiomediastinal contours: Post CABG. Bones: Unremarkable IMPRESSION: Clear lungs.
[2024-04-19 00:44] LABS: Chloride 105 mmol/L (98-107); Potassium 4.8 mmol/L (3.5-5.1); Sodium 142 mmol/L (136-145)
[2024-04-19 00:45] LABS: Anion Gap 9 (5-15); Carbon Dioxide 28 mmol/L (20-31)
[2024-04-19 00:50] LABS: BUN/Creatinine Ratio 18.6 (10.0-20.0)
[2024-04-19 00:53] LABS: Blood Urea Nitrogen 24 mg/dL (9-23); Calcium 10.7 mg/dL (8.7-10.4); Glucose 115 mg/dL (74-106)
[2024-04-19] MEDS ORDERED: ONDANSETRON HCL 4 MG/2 ML VIAL IV PRN (03:30)
[2024-04-19] MEDS ORDERED: MORPHINE SULFATE INJ 2 MG/ml SYRG IV PRN (03:30)
[2024-04-19] MEDS ORDERED: DEXTROSE (50%) 50ML SYRG IV PRN (03:30)
[2024-04-19] MEDS ORDERED: NITROGLYCERIN 0.4 MG SL TAB SL PRN (03:30)
[2024-04-19] MEDS ORDERED: ACETAMINOPHEN 325 MG TAB PO PRN (03:30)
--- NOTE | 2024-04-19 04:18 | DVHHP2 ---
History of Present Illness Reason for Visit: Palpitations History of Present Illness 79-year-old male presents for evaluation of palpitations. Patient with a history of PR, hypertension, CAD and status post CABG presents for evaluation of palpitations have been ongoing for the past two weeks. He states having intermittent episodes of palpitations with associated sharp substernal chest pain. Denies shortness or breath or dizziness. No nausea or vomiting. No other acute complaints reported. Past Medical History Diabetes mellitus, dyslipidemia, hypertension, mi, CAD, cancer Past Surgical History Cholecystectomy, tonsillectomy, eye surgery, CABG Family History Cancer, heart disease and diabetes mellitus Smoke: No ALCOHOL: none Drugs: None Lives: with Family Review of Systems Review of Systems Review of systems are currently negative otherwise addressed in HPI. Allergies: Coded Allergies: NO KNOWN ALLERGIES (Unverified , 08/21/21) Medications Current Medications Medications Dose Ordered Sig/Brii Route Start Time Stop Time Status Last Admin Dose Admin Carvedilol 3.125 mg Q12HR PO 04/19/24 10:00 Atorvastatin Calcium 40 mg HS PO 04/19/24 22:00 Aspirin 81 mg DAILY PO 04/19/24 10:00 Diagnostic Test (Pha) 1 strip ACHS 04/19/24 07:00 Insulin Human Regular ACHS SC 04/19/24 07:00 Dextrose 50 ml UD PRN IV 04/19/24 03:30 Ondansetron HCl 4 mg Q4HP PRN IV 04/19/24 03:30 Acetaminophen 650 mg Q6HP PRN PO 04/19/24 03:30 Nitroglycerin 0.4 mg Q5MINP PRN SL 04/19/24 03:30 Morphine Sulfate 2 mg Q30M PRN IV 04/19/24 03:30 Exam Vital Signs Vital Signs Date Time Temp Pulse Resp B/P (MAP) Pulse Ox O2 Delivery O2 Flow Rate FiO2 04/19/24 00:01 81 04/18/24 22:20 97.7 14 150/70 (96) 95 Exam Gen: 79-year-old male in mild distress Skin: Warm, dry, normal color and texture, no rash. HEENT: Normocephalic atraumatic, mucous membranes moist and pink. Neck: Cervical and supraclavicular nodes normal without enlargement, trachea is midline, thyroid gland is normal without masses. Pulmonary: Clear to auscultation and percussion bilaterally. Cardiac: Regular rate and rhythm. No murmur Abdomen: Soft, nontender, nondistended, bowel sounds present all 4 quadrants, no guarding, no rigidity, no organomegaly. Extremities: No cyanosis, clubbing, no edema Neuro: Cranial nerves II through XII grossly intact, normal affect and speech, no focal motor deficits. Labs/Xrays ORDERING PHYSICIAN: CHARLETTE KENNEDY MD PROCEDURE(s): ECIDC - ECHO 2D MODE CARDIAC DOP REASON: I10, E78.5 ORDER NUMBER(s): [id number], ACCESSION NUMBER(s): [id number] APPROVED REPORT EXAM: Two-dimensional and M-mode echocardiogram with Doppler and color Doppler. Surgery/Intervention CABG: DIMENSIONS LVDd 3.8 (3.8-5.7cm) LA (2D) 3.4 (1.9-4.0cm) Aortic Root 3.3 (2.0- 3.7cm) LVDs 2.6 (2.5-4.0cm) LA (MM) (1.9-4.0cm) Aortic Cusp Exc 1.1 (1.5- 2.0cm) EF (%) 60.0 (55-70%) Rt. Atrium 3.3 (1.9-4.0cm) Asc. Aorta cm IVSd 1.3 (0.7-1.1cm) RV (D) 3.5 (1.8-2.4cm) PWd 1.2 (0.7-1.1cm) Mitral Valve Mitral Mitral Stenosis E wave 1.05m/s MV Mean GR. mmHg A wave 0.83m/s MV Peak GR. mmHg E/A ratio 1.3 2D MVA cm2 DECEL Time 216ms PRESS 1/2 Time ms Aortic Valve Aortic Valve Aortic Stenosis V1 0.93m/s AO Mean GR. 5mmHg V2 1.52m/s AO Peak GR. 9mmHg LVOT Diameter 2.1 (1.8-2.4cm) Doppler RUIZ 2.12cm2 Pulmonic Valve V2 1.30m/s LEFT VENTRICLE The left ventricle is normal size. The left ventricle is normal in structure and function. The Ejection Fraction is within normal limits. RIGHT VENTRICLE The right ventricle is normal size. ATRIA The left atrial size is normal. The right atrium size is normal. The interatrial septum is intact with no evidence for an atrial septal defect. MITRAL VALVE The mitral valve is normal in structure and function. Mitral annular calcification is mild. Mitral regurgitation is mild. PULMONIC VALVE The pulmonic valve is not well visualized. There is mild pulmonic valvular regurgitation. TRICUSPID VALVE The tricuspid valve is grossly normal. AORTIC VALVE The aortic valve opens well. The aortic valve is mildly sclerotic. No aortic regurgitation is present. GREAT VESSELS The aortic root is normal size. PERICARDIAL EFFUSION There is no pericardial effusion. Other Information Technically limited study due to body habitus and CABG. Conclusion MILD MR MILD MAC EF >60% LVH MILD PI SIGNED BY: CHARLETTE KENNEDY MD ORDERING PHYSICIAN: TANISHA BARRIENTOS MD PROCEDURE(s): CXRP - CHEST PORTABLE REASON: palpitations cp ORDER NUMBER(s): [id number], ACCESSION NUMBER(s): [id number] CHEST RADIOGRAPH Indication: palpitations cp Technique: Single frontal view of the chest was obtained Comparison: CXRP on DOS: 08/19/21, CHEST PORTABLE on DOS: 08/19/21, CHEST XRAY 1 VIEW on DOS: 01/25/21 FINDINGS: Lines and Tubes: None Lungs: Clear Pleura: No effusion. No pneumothorax. Cardiomediastinal contours: Post CABG. Bones: Unremarkable IMPRESSION: Clear lungs. Labs Test 04/19/24 01:12 04/19/24 00:20 Range/Units Troponin I High Sensitivity 7 </=54 ng/L White Blood Count 9.9 4.4-10.8 10^3/uL Red Blood Count 5.04 4.5-5.90 10^6/uL Hemoglobin 15.3 13.5-17.5 g/dL Hematocrit 46.1 41.0-53.0 % Mean Corpuscular Volume 91.6 80.0-100.0 fL Mean Corpuscular Hemoglobin 30.4 28.0-32.0 pg Mean Corpuscular Hemoglobin Concent 33.2 32.0-36.0 g/dL Red Cell Distribution Width 13.9 11.8-14.3 % Platelet Count 174 140-450 10^3/uL Mean Platelet Volume 8.1 6.9-10.8 fL Neutrophils (%) (Auto) 55.3 37.0-80.0 % Lymphocytes (%) (Auto) 32.8 10.0-50.0 % Monocytes (%) (Auto) 8.5 0.0-12.0 % Eosinophils (%) (Auto) 2.3 0.0-7.0 % Basophils (%) (Auto) 1.1 0.0-2.0 % Neutrophils # (Auto) 5.5 1.6-8.6 10 ^3/uL Lymphocytes # (Auto) 3.2 0.4-5.4 10 ^3/uL Monocytes # (Auto) 0.8 0-1.3 10 ^3/uL Eosinophils # (Auto) 0.2 0-0.8 10 ^3/uL Basophils # (Auto) 0.1 0-0.2 10 ^3/uL Nucleated Red Blood Cells 0.1 % Sodium Level 142 136-145 mmol/L Potassium Level 4.8 3.5-5.1 mmol/L Chloride Level 105 98-107 mmol/L Carbon Dioxide Level 28 20-31 mmol/L Anion Gap 9 5-15 Blood Urea Nitrogen 24 H 9-23 mg/dL Creatinine 1.29 0.700-1.30 mg/dL Glomerular Filtration Rate Calc 57 >90 mL/min BUN/Creatinine Ratio 18.6 10.0-20.0 Serum Glucose 115 H 74-106 mg/dL Calcium Level 10.7 H 8.7-10.4 mg/dL B-Type Natriuretic Peptide 20.05 0-100 pg/mL Assessment/Plan Assessment/Plan Assessment Chest pain Palpitations Diabetes mellitus Hypertension Status post CABG Plan Admit the patient to telemetry to the hospitalist Cardiology consultation Resume home medications Continue treatment per orders. Plan discussed with: Patient My Orders Orders - KIMBER STRONG Procedure Category Date Status Time * Cardiology Consult CONS 04/19/24 Transmitted 03:23 Basic Metabolic Panel LAB 04/20/24 Verified 04:00 Carvedilol Tablet PHA 04/19/24 In Process (Coreg Tablet) 10:00 Atorvastatin (Lipitor) PHA 04/19/24 In Process 22:00 Aspirin Tablet PHA 04/19/24 In Process 10:00 Glucose Blood PHA 04/19/24 In Process (Accu-Chek Comfort 07:00 Insulin R (Human) PHA 04/19/24 In Process (Insulin R) 07:00 Dextrose 50% Syringe PHA 04/19/24 In Process 03:30 Admit ADMIT 04/19/24 Transmitted 03:23 Ondansetron Hcl PHA 04/19/24 In Process (Zofran) 03:30 Cardiac DIET 04/19/24 Transmitted Diet-2gna,Lofat,Lochol Breakfast Condition: Fair [facility] 04/19/24 In Process 03:23 Acetaminophen Tablet PHA 04/19/24 In Process (Tylenol Tablet) 03:30 Bedrest With Bathroom [facility] 04/19/24 In Process Privileg 03:23 Nitroglycerin PHA 04/19/24 In Process Sublingual (Ntrostat 03:30 Morphine Sulfate PHA 04/19/24 In Process Injection 03:30 Stat Ekg For Chest [facility] 04/19/24 In Process Pain 03:23 Notify Md Of Changes [facility] 04/19/24 In Process From Base 03:23 Workers Compensation Claims Adjuster For [facility] 04/19/24 In Process 24 Hours 03:23 Emergency Dysrhythmia [facility] 04/19/24 In Process Protocol 03:23 Rhythm Strips Once [facility] 04/19/24 In Process Every Shift 03:23 Oxygen By Nasal RT 04/19/24 Transmitted Cannula 03:23 Date of Service: Apr 19, 2024 Billing Provider: KIMBER STRONG Common Visit Codes: [id number] INP/OBS CARE (HIGH) KIMBER STRONG Apr 19, 2024 04:18
[2024-04-19 05:25] VITALS: PULSE 76; RESP 14; O2SAT 97
[2024-04-19] MEDS: SODIUM CHLORIDE 0.9% 1,000 ML IV ONE (05:37)
[2024-04-19] MEDS: ACCU-CHEK COMFORT CURVE STRIP VI SCH (07:00)
[2024-04-19] MEDS: InsuLIN REG 1unit/0.01ml Soln (100units/ml) SC SCH (08:33)
[2024-04-19] MEDS: ASPirin 81 mg TAB PO SCH (13:35)
[2024-04-19] MEDS: CARVEDILOL 3.125 MG TAB PO SCH (13:35)
--- NOTE | 2024-04-19 14:18 | DVHPN2 ---
Progress Note - Dictate Date Seen: Apr 19, 2024 Medical Necessity Reason Pt with a Central, PICC or Fol: No Subjective PT WITH CHEST AIN HX OF CABG ECHO LVH EF >55% MILD MAC CARDIOLITE MILD ANTERIOR / APICAL REVERSIBILITY CONSISTENT WITH TISSUE ATTENUATION S/P EM HTN vital signs Vital Sign Date Time Temp Pulse Resp B/P (MAP) Pulse Ox O2 Delivery O2 Flow Rate FiO2 04/19/24 13:35 71 137/85 04/19/24 12:51 16 99 04/19/24 10:05 97.7 97.7 04/19/24 08:22 Room Air 04/19/24 05:25 0 21 medications Current Medications Medications Dose Ordered Sig/Brii Route Start Time Stop Time Status Last Admin Dose Admin Carvedilol 3.125 mg Q12HR PO 04/19/24 10:00 04/19/24 13:35 3.125 MG Atorvastatin Calcium 40 mg HS PO 04/19/24 22:00 Aspirin 81 mg DAILY PO 04/19/24 10:00 04/19/24 13:35 81 MG Diagnostic Test (Pha) 1 strip ACHS 04/19/24 07:00 04/19/24 07:00 1 STRIP Insulin Human Regular ACHS SC 04/19/24 07:00 04/19/24 08:33 3 UNITS Dextrose 50 ml UD PRN IV 04/19/24 03:30 Ondansetron HCl 4 mg Q4HP PRN IV 04/19/24 03:30 Acetaminophen 650 mg Q6HP PRN PO 04/19/24 03:30 Nitroglycerin 0.4 mg Q5MINP PRN SL 04/19/24 03:30 Morphine Sulfate 2 mg Q30M PRN IV 04/19/24 03:30 laboratory and microbiology Laboratory Tests 04/19/24 00:20 Test 04/19/24 00:20 Range/Units Serum Glucose 115 H 74-106 mg/dL Problem List CHEST AIN HX OF CABG ECHO LVH EF >55% MILD MAC CARDIOLITE MILD ANTERIOR / APICAL REVERSIBILITY CONSISTENT WITH TISSUE ATTENUATION S/P EM HTN Assessment/Plan ATYPICAL CHEST PAIN CONSIDER LHC IF RECURRENT Plan discussed with: Patient CHARLETTE KENNEDY MD Apr 19, 2024 14:18
[2024-04-19 16:59] VITALS: PULSE 72; RESP 16; O2SAT 96
[2024-04-19 20:00] VITALS: PULSE 73; O2SAT 95
[2024-04-19 21:00] VITALS: BP 150/71; PULSE 75; RESP 18; TEMP 97.8; O2SAT 95
[2024-04-19] MEDS: ATORVASTATIN 20 MG TAB PO SCH (21:27)
[2024-04-20 07:28] LABS: Chloride 106 mmol/L (98-107); Potassium 4.1 mmol/L (3.5-5.1); Sodium 139 mmol/L (136-145)
[2024-04-20 07:29] LABS: Anion Gap 10 (5-15); Calcium 9.8 mg/dL (8.7-10.4); Carbon Dioxide 23 mmol/L (20-31)
[2024-04-20 07:34] VITALS: PULSE 82
[2024-04-20 07:34] LABS: BUN/Creatinine Ratio 18.6 (10.0-20.0); Blood Urea Nitrogen 22 mg/dL (9-23); Glucose 158 mg/dL (74-106)
[2024-04-20 08:42] VITALS: BP 134/66; PULSE 59; RESP 18; TEMP 97.3; O2SAT 99
--- NOTE | 2024-04-20 09:48 | DVHPN2 ---
Progress Note - Dictate Date Seen: Apr 20, 2024 Medical Necessity Reason Pt with a Central, PICC or Fol: No Subjective PT WITH CHEST AIN HX OF CABG ECHO LVH EF >55% MILD MAC CARDIOLITE MILD ANTERIOR / APICAL REVERSIBILITY CONSISTENT WITH TISSUE ATTENUATION S/P EM HTN vital signs Vital Sign Date Time Temp Pulse Resp B/P (MAP) Pulse Ox O2 Delivery O2 Flow Rate FiO2 04/20/24 08:42 97.3 59 18 134/66 (88) 99 97.3 04/20/24 08:04 Room Air* 0 21 Total Intake and Output 04/19/24 04/19/24 04/20/24 15:00 23:00 07:00 Intake Total 2 ml Balance 2 ml medications Current Medications Medications Dose Ordered Sig/Brii Route Start Time Stop Time Status Last Admin Dose Admin Carvedilol 3.125 mg Q12HR PO 04/19/24 10:00 04/19/24 21:27 3.125 MG Atorvastatin Calcium 40 mg HS PO 04/19/24 22:00 04/19/24 21:27 40 MG Aspirin 81 mg DAILY PO 04/19/24 10:00 04/19/24 13:35 81 MG Diagnostic Test (Pha) 1 strip ACHS 04/19/24 07:00 04/20/24 06:23 1 STRIP Insulin Human Regular ACHS SC 04/19/24 07:00 04/20/24 06:31 2 UNITS Dextrose 50 ml UD PRN IV 04/19/24 03:30 Ondansetron HCl 4 mg Q4HP PRN IV 04/19/24 03:30 Acetaminophen 650 mg Q6HP PRN PO 04/19/24 03:30 Nitroglycerin 0.4 mg Q5MINP PRN SL 04/19/24 03:30 Morphine Sulfate 2 mg Q30M PRN IV 04/19/24 03:30 laboratory and microbiology Laboratory Tests 04/20/24 06:43 04/19/24 00:20 Test 04/20/24 06:43 Range/Units Serum Glucose 158 H 74-106 mg/dL Problem List CHEST AIN HX OF CABG ECHO LVH EF >55% MILD MAC CARDIOLITE MILD ANTERIOR / APICAL REVERSIBILITY CONSISTENT WITH TISSUE ATTENUATION S/P EM HTN Assessment/Plan ATYPICAL CHEST PAIN CONSIDER LHC IF RECURRENT TROPONIN NEGATIVE BNP NORMAL MAY DC HOME FROM CARDIAC STAND POINT Plan discussed with: Patient CHARLETTE KENNEDY MD Apr 20, 2024 09:48
--- NOTE | 2024-04-20 11:47 | DVHPN2 ---
Objective Vitals Vital Signs Date Time Temp Pulse Resp B/P (MAP) Pulse Ox O2 Delivery O2 Flow Rate FiO2 04/20/24 10:48 65 114/69 04/20/24 08:42 97.3 18 99 97.3 04/20/24 08:04 Room Air* 0 21 Intake/Output Intake and Output 04/20/24 07:00 Intake Total 2 ml Balance 2 ml Intake Oral 2 ml Medications Current Medications Medications Dose Ordered Sig/Brii Route Start Time Stop Time Status Last Admin Dose Admin Carvedilol 3.125 mg Q12HR PO 04/19/24 10:00 04/20/24 10:48 3.125 MG Atorvastatin Calcium 40 mg HS PO 04/19/24 22:00 04/19/24 21:27 40 MG Aspirin 81 mg DAILY PO 04/19/24 10:00 04/20/24 10:48 81 MG Diagnostic Test (Pha) 1 strip ACHS 04/19/24 07:00 04/20/24 06:23 1 STRIP Insulin Human Regular ACHS SC 04/19/24 07:00 04/20/24 06:31 2 UNITS Dextrose 50 ml UD PRN IV 04/19/24 03:30 Ondansetron HCl 4 mg Q4HP PRN IV 04/19/24 03:30 Acetaminophen 650 mg Q6HP PRN PO 04/19/24 03:30 Nitroglycerin 0.4 mg Q5MINP PRN SL 04/19/24 03:30 Morphine Sulfate 2 mg Q30M PRN IV 04/19/24 03:30 Laboratory Results Laboratory Tests 04/19/24 00:20 04/20/24 06:43 Chemistry Test 04/20/24 06:43 Calcium Level 9.8 mg/dL (8.7-10.4) ROWAN TOBIN MD Apr 20, 2024 11:47
[2024-04-20 13:00] VITALS: BP 133/73; PULSE 67; RESP 18; TEMP 97.9; O2SAT 98
--- NOTE | 2024-04-20 13:24 | DVHDS2 ---
Discharge Summary Date of Admission Apr 19, 2024 at 03:23 Date of Discharge: Apr 20, 2024 Admitting Diagnosis Chest pain Palpitations Diabetes mellitus Hypertension Status post CABG Labs/Diagnostic Data: Laboratory Results Test 04/20/24 06:43 04/20/24 05:35 04/19/24 01:12 04/19/24 00:20 Sodium Level 139 mmol/L (136-145) Potassium Level 4.1 mmol/L (3.5-5.1) Chloride Level 106 mmol/L (98-107) Carbon Dioxide Level 23 mmol/L (20-31) Anion Gap 10 (5-15) Blood Urea Nitrogen 22 mg/dL (9-23) Creatinine 1.18 mg/dL (0.700-1.30) Glomerular Filtration Rate Calc 64 mL/min (>90) BUN/Creatinine Ratio 18.6 (10.0-20.0) Serum Glucose 158 mg/dL (74-106) Calcium Level 9.8 mg/dL (8.7-10.4) POC Glucose 136 mg/dl (70-106) Troponin I High Sensitivity 7 ng/L (</=54) White Blood Count 9.9 10^3/uL (4.4-10.8) Red Blood Count 5.04 10^6/uL (4.5-5.90) Hemoglobin 15.3 g/dL (13.5-17.5) Hematocrit 46.1 % (41.0-53.0) Mean Corpuscular Volume 91.6 fL (80.0-100.0) Mean Corpuscular Hemoglobin 30.4 pg (28.0-32.0) Mean Corpuscular Hemoglobin Concent 33.2 g/dL (32.0-36.0) Red Cell Distribution Width 13.9 % (11.8-14.3) Platelet Count 174 10^3/uL (140-450) Mean Platelet Volume 8.1 fL (6.9-10.8) Neutrophils (%) (Auto) 55.3 % (37.0-80.0) Lymphocytes (%) (Auto) 32.8 % (10.0-50.0) Monocytes (%) (Auto) 8.5 % (0.0-12.0) Eosinophils (%) (Auto) 2.3 % (0.0-7.0) Basophils (%) (Auto) 1.1 % (0.0-2.0) Neutrophils # (Auto) 5.5 10 ^3/uL (1.6-8.6) Lymphocytes # (Auto) 3.2 10 ^3/uL (0.4-5.4) Monocytes # (Auto) 0.8 10 ^3/uL (0-1.3) Eosinophils # (Auto) 0.2 10 ^3/uL (0-0.8) Basophils # (Auto) 0.1 10 ^3/uL (0-0.2) Nucleated Red Blood Cells 0.1 % B-Type Natriuretic Peptide 20.05 pg/mL (0-100) Other Laboratory Tests 04/20/24 06:43 04/19/24 00:20 Brief Hx & Hospital Course: This is a 79 years old male with past medical history of OR, hypertension, coronary artery disease status post CABG, the patient reports her palpitation for two weeks with intermittent palpitation associated with sharp substernal chest pain. 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 The patient troponin level was negative. The patient will be discharged home. Follow up with as outpatient for cardiac follow up. Follow up with primary care physician 1-2 weeks. Activity as tolerated. Diet per home diet. Recommend low-salt low-cholesterol diet. Physical exam: HEENT: Normocephalic atraumatic pupils equal react to light and accommodation. Extraocular muscles intact, conjunctiva pink, oropharynx moist, no thrush, no exudate. Lymphatic: No lymphadenopathy Cardiovascular exam: S1, S2 was heard. No murmurs, rubs, gallops Lung: Clear on auscultation bilaterally, no wheeze, rale, rhonchi. GI: Abdominal soft, nondistended, nontenderness, positive bowel sounds. Extremity: No crepitus, cyanosis, edema. Pedal pulses present bilateral. Full range of motion. Skin: Normal turgor, no rash. Psych: Alert, oriented x3. Neurology: No focal deficits, cranial nerve II to XII grossly intact. This medical document was created using an electronic medical record system with [employer] direct computerized dictation system. Although this document has been carefully reviewed, there may still be some phonetic and typographical errors. These areas are purely typographical due to imperfections of the software programs, and do not reflect any compromise in the patient's medical care. Condition at Discharge: Stable Final Diagnosis/Problems List Chest pain Palpitations Diabetes mellitus Hypertension Status post CABG Discharge Disposition: Home Discharge Instruct/Medications Diet: Cardiac 2g Na,low cholest Activity: No Restrictions, As Tolerated Follow Up/Referral: pcp 1-2 weeks Medications: resume home meds Discharge Statement: "Patient was advised to return to the ER or call 911 if any headaches, dizziness, shortness of breath, chest pain, abdominal pain, bleeding, fevers, or worsening of medical condition. Patient was counseled about treatment plan, medications, possible side effects, patientverbalized understanding. All questions were answered to the best of my ability. This discharge took greater then 30 minutes in planning, reviewing documentation, counseling the patient, and discussing with other team members." ASSESSMENT ASSESSMENT Assessment chest pain Date of Service: Apr 20, 2024 Billing Provider: ROWAN TOBIN MD Common Visit Codes: [id number] DISCH DAY >30min ROWAN TOBIN MD Apr 20, 2024 13:24
[2024-04-20 14:02] VITALS: BP 133/73
== END 2024-04-20 16:05 | disposition home or self-care (01) | DRG 313 ==
LOC: ER 22:01 → OVERFLOW 04-19 03:23 → TELE-WESTW 04-19 18:30
PROVIDERS: ADMIT Internal Medicine; ATTEND Internal Medicine
DX: R07.89 Other chest pain (principal); E11.9 Type 2 diabetes mellitus without complications; I25.10 Atherosclerotic heart disease of native coronary artery without angina pectoris; E78.5 Hyperlipidemia, unspecified; I12.9 Hypertensive chronic kidney disease with stage 1 through stage 4 chronic kidney disease, or unspecified chronic kidney disease; N18.9 Chronic kidney disease, unspecified; Z95.1 Presence of aortocoronary bypass graft; Z87.891 Personal history of nicotine dependence; Z83.3 Family history of diabetes mellitus; I25.2 Old myocardial infarction; Z79.899 Other long term (current) drug therapy; Z90.49 Acquired absence of other specified parts of digestive tract
CPT/HCPCS: 36415; 80048; 82962; 83880; 84484; 85025; 93005; G0378; J1815

== ENCOUNTER 2024-05-26 10:10 | Inpatient (IN) | payer OTHER ==
[~2024-05-26] VITALS: Ht 172.7 cm; Wt 85.7 kg
[2024-05-26 10:30] VITALS: PULSE 93; RESP 20; O2SAT 98
--- NOTE | 2024-05-26 10:30 | ED.PDOC ---
GI ASSESSMENT HPI Comments HPI: Poor Historian. 79y M who presents to the ED for chief complaint of abdominal pain. Pt has the following ED course: -pt states he has been having nausea, vomiting and diarrhea for the past 4 days - pt states he had also been having abdominal pain, L sided, non-radiating, intermittent, with noted relief of pain after belching and no exacerbating factors - pt has noted vomiting, which pt states is clear with no noted food particles in vomit - pt has associated generalized weakness with noted some shortness of breath - pt denies any recent sick contacts or changes to diet past medical history: DM, HTN, HLD, UT, CAD, cancer past surgical history: open heart surgery, cholecystectomy, tonsillectomy medications: allergies: nkda social history: denies tobacco use(quit greater than 1 years ago), denies Etoh use, denies drug use REVIEW OF SYSTEMS: CONSTITUTIONAL: Denies acute: fever, diaphoresis, chills, HEAD: Denies acute: headache, photophobia Eyes: Denies acute: Double vision, vision loss, eye pain, eye discharge. EARS: Denies acute: tinnitus, hearing loss, ear discharge, ear pain, THROAT: Denies acute: sore throat, swelling, difficulty swallowing , pain with swallowing, change in voice. NECK: Denies acute: neck pain, neck swelling, stiff neck. HEART: Denies acute : chest pain, LUNGS: Denies acute: wheezing, cough, hemoptysis ABDOMEN: Denies acute: melena , hematemesis, hematochezia SKIN: Denies acute: rash, redness, lesions, itchiness. EXTREMITIES: Denies acute: calf pain, numbness, tingling, weakness, denies pain in extremity. Denies acute: Low back pain. Neuro: Denies acute: focal neurological deficit, motor or sensory focal neurological deficit, tremors, seizure like activity, confusion, dizziness, change in mental status, loss of bowel or bladder function, cauda equina like symptoms. : Denies acute: dysuria, hematuria, flank pain, increase in urinary frequency. PSYCH: Denies acute: hallucination, suicidal ideation, homicidal ideation. PHYSICAL EXAM: General: no acute distress, awake and alert. Head: normocephalic, atraumatic. Neck: supple, trachea is midline, no swelling. Throat: Normal phonation. Eyes:, no erythema, no purulent discharge, no proptosis, no icterus. Heart: regular tachycardia, no significant murmur appreciated. Lungs: no apparent respiratory distress, Able to speak in full sentences. No wheezing, no rhonchi, no crackles. No stridors Clear to auscultation bilaterally. Abdomen: Mild left-sided abdominal tender to palpation, non distended, soft, no guarding, no rebound, + bowel sounds. Neuro: Awake, Alert, oriented to name, self, situation, follows commands GCS=15. Speech is normal. Skin: no petechia, no purpura, no cyanosis, non-pale, slightly jaundice. Lower extremities: --1/4 bilateral - Pitting edema no deformity, no focal swelling, no calf TTP. Makes eye contact. moves all four extremities. Face: no apparent facial droop. Ambulating in the ED independently. ED COURSE: Chief Complaint: Abdominal Pain Time Seen by MD: 10:17 Primary Care Provider: JUDE ALBARADO Reviewed Notes: Nurses Notes, Allergies Allergies: Coded Allergies: NO KNOWN ALLERGIES (Unverified , 08/21/21) Home Meds Reported Medications Insulin Glargine-Yfgn (Insulin Glargine) 100 Unit/Ml Inj, 20 UNIT SC DAILY for diabetes, INJ 12/01/22 Metformin Hydrochloride (Metformin Hcl) 500 Mg Tab, 250 MG PO BID for diabetes for 30 Days, MG 12/01/22 Atorvastatin Calcium (ATORVASTATIN CALCIUM) 40 Mg Tab, 1 TAB PO DAILY for HIGH CHOLESTEROL, #30 TAB 5 Refills 08/20/21 Carvedilol (Coreg) 3.125 Mg Tab, 1 TAB PO BID for HTN, #180 TAB 1 Refill 08/20/21 Ezetimibe (Zetia) 10 Mg Tab, 1 TAB PO DAILY for HIGH CHOLESTEROL, #30 TAB 5 Refills 08/20/21 Apixaban Base (ELIQUIS) 2.5 Mg Tab, 2.5 MG PO BID for stop on 12/03/22, TAB 01/25/21 Information Source: Patient Mode of Arrival: Ambulatory Past Medical History PAST MEDICAL HISTORY: Angina, CAD, Cancer, CKF, DM, High Lipids, HTN, UT Surgical History: CABG, Cholecystectomy, Tonsillectomy Family History Family History: Family hx of DM, Family hx of Cancer, Family hx of heart leticia Social History Smoker: Quit Greater Than 1 Year Alcohol: Denies ETOH Use Drugs: Denies Drug Use Lives In: Home Was a procedure done? Was a procedure done?: No GI differential Dx Differential Diagnosis: Other (DDX include but not limited to diverticulitis, colitis, gastroenteritis, acute abdomen, SBO, enteritis, constipation, volvulus, appendicitis, Gallbladder disease, choledocolithiasis, ascending cholangitis, pancreatitis, intraAbdominal mass/neoplasm, hepatitis, UTI, pylonephritis, kidney stone, aneurysm, dissection, Inflammatory bowel disease, gastroparesis, ischemic bowel.) X-Ray, Labs, Meds, VS Vital Signs Date Time Temp Pulse Resp B/P (MAP) Pulse Ox O2 Delivery O2 Flow Rate FiO2 05/26/24 12:00 97.6 83 12 130/72 (91) 99 97.6 05/26/24 12:00 87 05/26/24 10:30 97.8 93 20 142/79 (100) 98 97.8 05/26/24 10:30 93 20 98 Room Air* 0 21 05/26/24 10:19 96.9 122 20 135/87 (103) 97 96.9 05/26/24 10:18 109 Lab Test 05/26/24 13:40 05/26/24 11:40 05/26/24 10:36 05/26/24 10:35 Range/Units Lactic Acid Level 2.4 *H 3.2 *H 0.4-2.0 mmol/L Troponin I High Sensitivity 8 7 8 </=54 ng/L White Blood Count 9.4 4.4-10.8 10^3/uL Red Blood Count 5.68 4.5-5.90 10^6/uL Hemoglobin 18.2 H 13.5-17.5 g/dL Hematocrit 51.7 41.0-53.0 % Mean Corpuscular Volume 91.1 80.0-100.0 fL Mean Corpuscular Hemoglobin 32.1 H 28.0-32.0 pg Mean Corpuscular Hemoglobin Concent 35.2 32.0-36.0 g/dL Red Cell Distribution Width 14.1 11.8-14.3 % Platelet Count 226 140-450 10^3/uL Mean Platelet Volume 8.0 6.9-10.8 fL Neutrophils (%) (Auto) 54.2 37.0-80.0 % Lymphocytes (%) (Auto) 30.9 10.0-50.0 % Monocytes (%) (Auto) 12.4 H 0.0-12.0 % Eosinophils (%) (Auto) 2.1 0.0-7.0 % Basophils (%) (Auto) 0.4 0.0-2.0 % Neutrophils # (Auto) 5.1 1.6-8.6 10 ^3/uL Lymphocytes # (Auto) 2.9 0.4-5.4 10 ^3/uL Monocytes # (Auto) 1.2 0-1.3 10 ^3/uL Eosinophils # (Auto) 0.2 0-0.8 10 ^3/uL Basophils # (Auto) 0 0-0.2 10 ^3/uL Nucleated Red Blood Cells 0.1 % Sodium Level 134 L 136-145 mmol/L Potassium Level 4.5 3.5-5.1 mmol/L Chloride Level 102 98-107 mmol/L Carbon Dioxide Level 19 L 20-31 mmol/L Anion Gap 13 5-15 Blood Urea Nitrogen 49 H 9-23 mg/dL Creatinine 1.93 H 0.700-1.30 mg/dL Glomerular Filtration Rate Calc 35 >90 mL/min BUN/Creatinine Ratio 25.4 H 10.0-20.0 Serum Glucose 185 H 74-106 mg/dL Hemoglobin A1c 6.6 H <5.7 % A1C Calcium Level 9.7 8.7-10.4 mg/dL Magnesium Level 2.5 1.6-2.6 mg/dL Total Bilirubin 4.5 H 0.2-1.0 mg/dL Aspartate Amino Transferase (AST) 62 H 13-40 U/L Alanine Aminotransferase (ALT) 57 H 7-40 U/L Alkaline Phosphatase 101 46-116 U/L B-Type Natriuretic Peptide 12.02 0-100 pg/mL Total Protein 8.5 H 5.7-8.2 g/dL Albumin 5.2 H 3.2-4.8 g/dL Lipase 62 H 12-53 U/L Urine Color Yellow Yellow Urine Clarity Clear Clear Urine pH 5.0 5.0-9.0 Urine Specific [place] 1.022 1.001-1.035 Urine Protein 1+ H Negative Urine Ketones 1+ H Negative Urine Blood Trace H Negative /uL Urine Nitrite Negative Negative Urine Bilirubin Negative Negative Urine Urobilinogen Normal Negative mg/dL Urine Leukocyte Esterase Negative Negative /uL Urine RBC 1 0 - 3 /hpf Urine Microscopic WBC 1 0-3 /HPF Urine Squamous Epithelial Cells Few <5 /hpf Urine Bacteria None seen None Seen /hpf Urine Hyaline Casts Few 0 - 2 /lpf Urine Mucus Few None Seen Urine Glucose Normal Normal mg/dL Microbiology Date/Time Source Procedure Growth Status 05/26/24 10:35 Voided Urine Urine Culture - Preliminary Resulted Current Medications Medications (Trade) Dose Ordered Sig/Brii Route Start Time Stop Time Status Last Admin Sodium Chloride 1,000 ml @ 100 mls/hr Q10H ONCE IV 05/26/24 14:30 05/27/24 00:29 DC 05/26/24 14:59 Piperacillin Sod/ Tazobactam Sod 100 ml @ 25 mls/hr Q8HR IV 05/26/24 14:30 05/27/24 05:00 [place] [address] Ph: [phone] DIAGNOSTIC IMAGING Diagnostic Imaging Report : [id number] Signed PATIENT: KAYLA TIERNEY ACCT: [id number] UNIT: [id number] : 1945 LOC: ER ROOM / BED: / AGE / SEX: 79 / M ADM STATUS: REG ER SERVICE 1018 ORDERING PHYSICIAN: DEEPTI BARRY DO PROCEDURE(s): CXRP - CHEST PORTABLE REASON: N/V/D ABD PAIN PALPIT SOB ORDER NUMBER(s): [id number], ACCESSION NUMBER(s): [id number] EXAM: XY CHEST PORTABLE Indication: Pain Technique: Single frontal view of the chest was obtained Comparison: XY CHEST PORTABLE on DOS: 04/19/24, CXRP on DOS: 08/19/21, CHEST PORTABLE on DOS: 08/19/21, CHEST XRAY 1 VIEW on DOS: 01/25/21 FINDINGS: Lines and Tubes: None Lungs: No focal consolidation. Pleura: No effusion. No pneumothorax. Cardiomediastinal contours: Unremarkable. Atherosclerotic vascular calc ifications of the thoracic aorta are noted. Bones: No acute osseous abnormality. IMPRESSION: No acute cardiopulmonary disease. ATED BY: DAVON DODD MD DICTATED DATE/TIME: 05/26/241206 SIGNED BY: DAVON DODD MD SIGNED DATE/TIME: 05/26/241206 CC: [place] [address] Ph: [phone] DIAGNOSTIC IMAGING Diagnostic Imaging Report : [id number] Signed PATIENT: KAYLA TIERNEY ACCT: [id number] UNIT: [id number] : 1945 LOC: ER ROOM / BED: / AGE / SEX: 79 / M ADM STATUS: REG ER SERVICE 1018 ORDERING PHYSICIAN: DEEPTI BARRY DO PROCEDURE(s): ABPL - CT AB PEL WO CON-NO ORAL OR IV REASON: N/V/D ABD PAIN PALPIT SOB ORDER NUMBER(s): [id number], ACCESSION NUMBER(s): [id number] CLINICAL INFORMATION: Abdominal pain. Nausea, vomiting, diarrhea. TECHNIQUE: Axial CT images of the abdomen and pelvis were obtained without IV contrast. Coronal and sagittal reformatted images were obtained, reviewed, and stored. Evaluation of the parenchymal organs is limited without IV contrast. Evaluation of the bowel and mesentery is limited without oral contrast. All CT scans at this medical facility are performed using dose modulation techniques as appropriate to a performed exam including the following: Automated exposure control was utilized; adjustment of the MA and/or KV according to patient size; and use of iterative reconstruction technique. CTDIvol = 13.58 mGy DLP = 797.37 mGy-cm COMPARISON: None FINDINGS: Lung bases: Partially visualized moderate emphysematous changes and mild fibrotic changes. Liver: Grossly unremarkable in its noncontrast enhanced appearance. No abnormal density or focal lesion identified. Biliary: Cholecystectomy. Spleen: Unremarkable. Pancreas: Grossly unremarkable in its noncontrast enhanced appearance. Adrenal glands: Unremarkable. No mass. Kidneys: No hydronephrosis. No renal or ureteral calculi. Aorta/Vascular: Dense atherosclerotic calcification. No abdominal aortic aneurysm. Retroperitoneum: No mass or lymphadenopathy. Bowel/mesentery: Nonspecific nondilated fluid-filled small bowel loops. Findings may be seen with ileus or enteritis in the appropriate clinical setting. No small bowel obstruction. Appendix is visualized and appears normal in caliber with no periappendiceal stranding to suggest acute appendicitis. Intraluminal density within the appendix consistent with appendicoliths. Scattered colonic diverticula without adjacent inflammatory changes to suggest diverticulitis. Pelvic organs: Likely brachytherapy seeds in the prostate Bladder: Grossly unremarkable Abdominal wall: No mass or hernia. Bones: No acute fracture or suspicious intraosseous lesion. IMPRESSION: 1. Nonspecific nondilated fluid-filled small bowel loops. Findings may be seen with ileus or enteritis in the appropriate clinical setting. No small bowel obstruction. 2. Scattered colonic diverticula without adjacent inflammatory changes to suggest diverticulitis. 3. Additional nonacute findings as detailed above. ATED BY: RASTA BARNHART DO DICTATED DATE/TIME: 05/26/24 1213 SIGNED BY: RASTA BARNHART DO SIGNED DATE/TIME: 05/26/24 1213 CC: Time of 1ST Reevaluation: 00:00 Reevaluation 1ST: Improved Patient Education/Counseling: Diagnosis, Treatment Family Education/Counseling: No Family Present Comments Patient presented with the above HPI.--GI and abdominal pain and symptoms----workup was initiated. patient was found with the above mentioned diagnosis. Sepsis protocol was initiated the following medications were ordered: please refer to order lists of meds and tests obtained by myself Dr. Barry. Patient ED course and VS have been stabilized. Patient has been reassessed in the ED and remained in a stable condition. Pertinent incidental findings were discussed with the patient and/or family. Patient/family voices understanding and is agreeable with plan. Patient has been observed in the ED adequate length of time to insure improvement/stability. Escalation of care considered: Consideration of escalation to observation or admission Patient was ADMITTED to the medicine team for further evaluation and treatment of their presentation. All the reports of any imaging studies that were ordered by myself were reviewed by myself. Departure 1 Departure Time of Disposition: 11:57 Impression: Primary Impression: Sepsis Additional Impressions: Nausea vomiting and diarrhea Abdominal pain Hyperbilirubinemia Enteritis Disposition: ADMITTED INPATIENT Admit to: Tele Condition: Guarded Discharged With: Self Critical Care Note Critical Care Time?: Yes (1 hr-critical care time only) I personally scribed for DEEPTI BARRY DO ([facility]) on 05/26/24 at 10:30. Electronically submitted by Chad Mora ([facility]). I personally scribed for DEEPTI BARRY DO ([facility]) on 05/26/24 at 10:57. Electronically submitted by Chad Mora ([facility]). I personally scribed for DEEPTI BARRY DO ([facility]) on 05/26/24 at 12:43. Electronically submitted by Chad Mora ([facility]). DEEPTI BARRY DO May 26, 2024 10:30
[2024-05-26] MEDS: ONDANSETRON HCL 4 MG/2 ML VIAL ONE (11:04)
[2024-05-26] MEDS: ONDANSETRON HCL 4 MG/2 ML VIAL IV ONE (11:06)
[2024-05-26 11:17] LABS: Basophils # (auto) 0 10 ^3/uL (0-0.2); Basophils % (auto) 0.4 % (0.0-2.0); Eosinophils # (auto) 0.2 10 ^3/uL (0-0.8); Lymphocytes # (auto) 2.9 10 ^3/uL (0.4-5.4); Mean Corpuscular Hgb Conc. 35.2 g/dL (32.0-36.0); Nucleated Red Blood Cells % 0.1 %; White Blood Cell 9.4 10^3/uL (4.4-10.8)
[2024-05-26 11:18] LABS: Eosinophils % (auto) 2.1 % (0.0-7.0); Hematocrit 51.7 % (41.0-53.0); Hemoglobin 18.2 g/dL (13.5-17.5); Lymphocytes % (auto) 30.9 % (10.0-50.0); Mean Corpuscular Hemoglobin 32.1 pg (28.0-32.0); Mean Corpuscular Volume 91.1 fL (80.0-100.0); Monocytes # (auto) 1.2 10 ^3/uL (0-1.3); Monocytes % (auto) 12.4 % (0.0-12.0); Neutrophils # (auto) 5.1 10 ^3/uL (1.6-8.6); Neutrophils % (auto) 54.2 % (37.0-80.0); Platelet Count (auto) 226 10^3/uL (140-450); Red Blood Cells 5.68 10^6/uL (4.5-5.90); Red Cell Distribution Width 14.1 % (11.8-14.3)
[2024-05-26 11:21] LABS: Alkaline Phosphatase 101 U/L (46-116); Anion Gap 13 (5-15); BUN/Creatinine Ratio 25.4 (10.0-20.0); Calcium 9.7 mg/dL (8.7-10.4); Chloride 102 mmol/L (98-107); Magnesium 2.5 mg/dL (1.6-2.6); Potassium 4.5 mmol/L (3.5-5.1)
[2024-05-26 11:22] LABS: Blood Urea Nitrogen 49 mg/dL (9-23); Carbon Dioxide 19 mmol/L (20-31); Glucose 185 mg/dL (74-106); Sodium 134 mmol/L (136-145)
[2024-05-26 11:23] LABS: Alanine Aminotransferase 57 U/L (7-40); Albumin 5.2 g/dL (3.2-4.8); Aspartate Aminotransferase 62 U/L (13-40); Bilirubin, Total 4.5 mg/dL (0.2-1.0); Lipase 62 U/L (12-53); Total Protein 8.5 g/dL (5.7-8.2)
--- NOTE | 2024-05-26 11:35 | ECG ---
[facility] Test Date: 2024-05-26 Test Time: 10:18:17 Pat Name: KAYLA TIERNEY Department: ER Room: Gender: M [employer] Attendant: REID : [id number] Requested By: DEEPTI BARRY Order Number: [id number] Reading MD: Giuliano James Measurements Intervals [place] Rate: 109 P: 70 ID: [id number] QRS: 26 QRSD: 92 T: 52 QT: 336 QTc: 453 Interpretive Statements Sinus tachycardia Probable left atrial enlargement Electronically Signed On 05-26-2024 14:13:40 PDT by Giuliano James Please click the below link to view image of tracing.
[2024-05-26 11:48] LABS: Lactic Acid w/Reflex 3.2 mmol/L (0.4-2.0)
[2024-05-26] MEDS: SODIUM CHLORIDE 0.9% 2,050 ML IV ONE (12:01)
--- NOTE | 2024-05-26 12:10 | DVH ---
EXAM: XY CHEST PORTABLE Indication: Pain Technique: Single frontal view of the chest was obtained Comparison: XY CHEST PORTABLE on DOS: 04/19/24, CXRP on DOS: 08/19/21, CHEST PORTABLE on DOS: 08/19/21, CHEST XRAY 1 VIEW on DOS: 01/25/21 FINDINGS: Lines and Tubes: None Lungs: No focal consolidation. Pleura: No effusion. No pneumothorax. Cardiomediastinal contours: Unremarkable. Atherosclerotic vascular calcifications of the thoracic ao rta are noted. Bones: No acute osseous abnormality. IMPRESSION: No acute cardiopulmonary disease.
--- NOTE | 2024-05-26 12:15 | DVH ---
CLINICAL INFORMATION: Abdominal pain. Nausea, vomiting, diarrhea. TECHNIQUE: Axial CT images of the abdomen and pelvis were obtained without IV contrast. Coronal and s agittal reformatted images were obtained, reviewed, and stored. Evaluation of the parenchymal organs is limited without IV contrast. Evaluation of the bowel and mesentery is limited without oral contras t. All CT scans at this medical facility are performed using dose modulation techniques as appropriat e to a performed exam including the following: Automated exposure control was utilized; adjustment of the MA and/or KV according to patient size; and use of iterative reconstruction technique. CTDIvol = 13.58 mGy DLP = 797.37 mGy-cm COMPARISON: None FINDINGS: Lung bases: Partially visualized moderate emphysematous changes and mild fibrotic changes. Liver: Grossly unremarkable in its noncontrast enhanced appearance. No abnormal density or focal lesi on identified. Biliary: Cholecystectomy. Spleen: Unremarkable. Pancreas: Grossly unremarkable in its noncontrast enhanced appearance. Adrenal glands: Unremarkable. No mass. Kidneys: No hydronephrosis. No renal or ureteral calculi. Aorta/Vascular: Dense atherosclerotic calcification. No abdominal aortic aneurysm. Retroperitoneum: No mass or lymphadenopathy. Bowel/mesentery: Nonspecific nondilated fluid-filled small bowel loops. Findings may be seen with ile us or enteritis in the appropriate clinical setting. No small bowel obstruction. Appendix is visualiz ed and appears normal in caliber with no periappendiceal stranding to suggest acute appendicitis. In traluminal density within the appendix consistent with appendicoliths. Scattered colonic diverticula without adjacent inflammatory changes to suggest diverticulitis. Pelvic organs: Likely brachytherapy seeds in the prostate Bladder: Grossly unremarkable Abdominal wall: No mass or hernia. Bones: No acute fracture or suspicious intraosseous lesion. IMPRESSION: 1.Nonspecific nondilated fluid-filled small bowel loops. Findings may be seen with ileus or enteriti s in the appropriate clinical setting. No small bowel obstruction. 2.Scattered colonic diverticula without adjacent inflammatory changes to suggest diverticulitis. 3.Additional nonacute findings as detailed above.
[2024-05-26] MEDS: PIPERACILLIN-TAZOB 3.375GM 100 ML IV ONE (12:31)
[2024-05-26 12:44] LABS: Urine Bacteria None Seen /hpf (None Seen)
[2024-05-26 12:54] LABS: Urine Blood TRACE /uL (Negative); Urine Clarity Clear (Clear); Urine Color Yellow (Yellow); Urine Hyaline Cast FEW /lpf (0 - 2); Urine Mucus FEW (None Seen); Urine Protein, UAD 1+ (Negative); Urine Specific Gravity 1.022 (1.001-1.035); Urine Squamous Epithelial Cell FEW /hpf (<5); Urine Urobilinogen Normal (Negative); Urine WBC 1 /HPF (0-3)
[2024-05-26] MEDS ORDERED: ACETAMINOPHEN 325 MG TAB PO PRN (14:30)
[2024-05-26] MEDS ORDERED: DEXTROSE (50%) 50ML SYRG IV PRN (14:30)
[2024-05-26] MEDS ORDERED: ONDANSETRON HCL 4 MG/2 ML VIAL IV PRN (14:30)
[2024-05-26] MEDS ORDERED: HYDROcodone-ACET 5/325MG TAB PO PRN (14:30)
[2024-05-26] MEDS: PIPERACILLIN-TAZOB 3.375GM 100 ML IV SCH (14:30)
[2024-05-26] MEDS ORDERED: MORPHINE SULFATE INJ 2 MG/ml SYRG IV PRN (14:30)
--- NOTE | 2024-05-26 14:44 | DVHHP2 ---
History of Present Illness Reason for Visit: Abdominal pain History of Present Illness Iftikhar Morrissey is a 79-year-old male with a past medical history of CAD, hypertension, hyperlipidemia, diabetes type 2, [place] status post CABG, prostate cancer, cholecystectomy, tonsillectomy, bilateral eye surgery who presents to the ED with abdominal discomfort, nausea, vomiting, and diarrhea x4 days. Patient reports that he has been getting weak since the diarrhea. He denies any recent ingestion of spoiled food, recent trauma or injury, chest pain, shortness of breath, fever, chills, lightheadedness, and dizziness. Patient reports that he quit smoking 30 years ago, does not use drugs, and does not drink. Cardiovascular: CAD, HTN, [place], hyperipidemia Past Medical History Prostate cancer diagnosed in 2014 Past Surgical History: Cholecystectomy, CABG, Other (Bilateral eye surgery), Tonsillectomy Family History: Other (Dad with rheumatic heart disease) Smoke: Quit ALCOHOL: none Drugs: None Lives: with Family Domestic Violence: Neg Review of Systems Constitutional: Yes: Weakness Gastrointestinal: Nausea, Vomiting, Abdominal Pain, Diarrhea Allergies: Coded Allergies: NO KNOWN ALLERGIES (Unverified , 08/21/21) Medications Current Medications Medications Dose Ordered Sig/Brii Route Start Time Stop Time Status Last Admin Dose Admin Piperacillin Sod/ Tazobactam Sod 100 ml @ 25 mls/hr Q8HR IV 05/26/24 14:30 UNV Acetaminophen/ Hydrocodone Bitart 1 tab Q4HP PRN PO 05/26/24 14:30 UNV Ondansetron HCl 4 mg Q4HP PRN IV 05/26/24 14:30 UNV Enoxaparin Sodium 30 mg DAILY SC 05/27/24 10:00 UNV Acetaminophen 650 mg Q6HP PRN PO 05/26/24 14:30 UNV Morphine Sulfate 2 mg Q4HPRN PRN IV 05/26/24 14:30 UNV Diagnostic Test (Pha) 1 strip ACHS 05/26/24 17:00 UNV Insulin Human Regular ACHS SC 05/26/24 17:00 UNV Dextrose 50 ml UD PRN IV 05/26/24 14:30 UNV Exam Vital Signs Vital Signs Date Time Temp Pulse Resp B/P (MAP) Pulse Ox O2 Delivery O2 Flow Rate FiO2 05/26/24 12:00 97.6 83 12 130/72 (91) 99 97.6 05/26/24 10:30 Room Air* 0 21 General Appearance: Alert, Oriented X3, Cooperative, No acute distress HEENT: Atraumatic, PERRLA, EOMI, Mucous membr. moist/pink Respiratory: Clear to auscultation, Normal air movement Cardiovascular: Normal S1, Normal S2, No murmurs Abdominal: Normal bowel sounds, Soft, No hepatospenomegaly, No masses Extremities: No edema, Normal pulses Skin: No significant lesion Neuro: Normal speech, Normal tone, Sensation intact Psych/Mental Status: Mental status NL, Mood NL Labs/Xrays Labs Test 05/26/24 13:40 05/26/24 10:36 05/26/24 10:35 Range/Units Lactic Acid Level 2.4 *H 0.4-2.0 mmol/L Troponin I High Sensitivity 8 </=54 ng/L White Blood Count 9.4 4.4-10.8 10^3/uL Red Blood Count 5.68 4.5-5.90 10^6/uL Hemoglobin 18.2 H 13.5-17.5 g/dL Hematocrit 51.7 41.0-53.0 % Mean Corpuscular Volume 91.1 80.0-100.0 fL Mean Corpuscular Hemoglobin 32.1 H 28.0-32.0 pg Mean Corpuscular Hemoglobin Concent 35.2 32.0-36.0 g/dL Red Cell Distribution Width 14.1 11.8-14.3 % Platelet Count 226 140-450 10^3/uL Mean Platelet Volume 8.0 6.9-10.8 fL Neutrophils (%) (Auto) 54.2 37.0-80.0 % Lymphocytes (%) (Auto) 30.9 10.0-50.0 % Monocytes (%) (Auto) 12.4 H 0.0-12.0 % Eosinophils (%) (Auto) 2.1 0.0-7.0 % Basophils (%) (Auto) 0.4 0.0-2.0 % Neutrophils # (Auto) 5.1 1.6-8.6 10 ^3/uL Lymphocytes # (Auto) 2.9 0.4-5.4 10 ^3/uL Monocytes # (Auto) 1.2 0-1.3 10 ^3/uL Eosinophils # (Auto) 0.2 0-0.8 10 ^3/uL Basophils # (Auto) 0 0-0.2 10 ^3/uL Nucleated Red Blood Cells 0.1 % Sodium Level 134 L 136-145 mmol/L Potassium Level 4.5 3.5-5.1 mmol/L Chloride Level 102 98-107 mmol/L Carbon Dioxide Level 19 L 20-31 mmol/L Anion Gap 13 5-15 Blood Urea Nitrogen 49 H 9-23 mg/dL Creatinine 1.93 H 0.700-1.30 mg/dL Glomerular Filtration Rate Calc 35 >90 mL/min BUN/Creatinine Ratio 25.4 H 10.0-20.0 Serum Glucose 185 H 74-106 mg/dL Calcium Level 9.7 8.7-10.4 mg/dL Magnesium Level 2.5 1.6-2.6 mg/dL Total Bilirubin 4.5 H 0.2-1.0 mg/dL Aspartate Amino Transferase (AST) 62 H 13-40 U/L Alanine Aminotransferase (ALT) 57 H 7-40 U/L Alkaline Phosphatase 101 46-116 U/L B-Type Natriuretic Peptide 12.02 0-100 pg/mL Total Protein 8.5 H 5.7-8.2 g/dL Albumin 5.2 H 3.2-4.8 g/dL Lipase 62 H 12-53 U/L Urine Color Yellow Yellow Urine Clarity Clear Clear Urine pH 5.0 5.0-9.0 Urine Specific [place] 1.022 1.001-1.035 Urine Protein 1+ H Negative Urine Ketones 1+ H Negative Urine Blood Trace H Negative /uL Urine Nitrite Negative Negative Urine Bilirubin Negative Negative Urine Urobilinogen Normal Negative mg/dL Urine Leukocyte Esterase Negative Negative /uL Urine RBC 1 0 - 3 /hpf Urine Microscopic WBC 1 0-3 /HPF Urine Squamous Epithelial Cells Few <5 /hpf Urine Bacteria None seen None Seen /hpf Urine Hyaline Casts Few 0 - 2 /lpf Urine Mucus Few None Seen Urine Glucose Normal Normal mg/dL EXAM: XY CHEST PORTABLE Indication: Pain Technique: Single frontal view of the chest was obtained Comparison: XY CHEST PORTABLE on DOS: 04/19/24, CXRP on DOS: 08/19/21, CHEST PORTABLE on DOS: 08/19/21, CHEST XRAY 1 VIEW on DOS: 01/25/21 FINDINGS: Lines and Tubes: None Lungs: No focal consolidation. Pleura: No effusion. No pneumothorax. Cardiomediastinal contours: Unremarkable. Atherosclerotic vascular calcifications of the thoracic aorta are noted. Bones: No acute osseous abnormality. IMPRESSION: No acute cardiopulmonary disease. CLINICAL INFORMATION: Abdominal pain. Nausea, vomiting, diarrhea. TECHNIQUE: Axial CT images of the abdomen and pelvis were obtained without IV contrast. Coronal and sagittal reformatted images were obtained, reviewed, and stored. Evaluation of the parenchymal organs is limited without IV contrast. Evaluation of the bowel and mesentery is limited without oral contrast. All CT s cans at this medical facility are performed using dose modulation techniques as appropriate to a performed exam including the following: Automated exposure control was utilized; adjustment of the MA and/or KV according to patient size; and use of iterative reconstruction technique. CTDIvol = 13.58 mGy DLP = 797.37 mGy-cm COMPARISON: None FINDINGS: Lung bases: Partially visualized moderate emphysematous changes and mild fibrotic changes. Liver: Grossly unremarkable in its noncontrast enhanced appearance. No abnormal density or focal lesion identified. Biliary: Cholecystectomy. Spleen: Unremarkable. Pancreas: Grossly unremarkable in its noncontrast enhanced appearance. Adrenal glands: Unremarkable. No mass. Kidneys: No hydronephrosis. No renal or ureteral calculi. Aorta/Vascular: Dense atherosclerotic calcification. No abdominal aortic aneurysm. Retroperitoneum: No mass or lymphadenopathy. Bowel/mesentery: Nonspecific nondilated fluid-filled small bowel loops. Findings may be seen with ileus or enteritis in the appropriate clinical setting. No small bowel obstruction. Appendix is visualized and appears normal in caliber with no periappendiceal stranding to suggest acute appendicitis. Intraluminal density within the appendix consistent with appendicoliths. Scattered colonic diverticula without adjacent inflammatory changes to suggest diverticulitis. Pelvic organs: Likely brachytherapy seeds in the prostate Bladder: Grossly unremarkable Abdominal wall: No mass or hernia. Bones: No acute fracture or suspicious intraosseous lesion. IMPRESSION: 1. Nonspecific nondilated fluid-filled small bowel loops. Findings may be seen with ileus or enteritis in the appropriate clinical setting. No small bowel obstruction. 2. Scattered colonic diverticula without adjacent inflammatory changes to suggest diverticulitis. 3. Additional nonacute findings as detailed above. Assessment/Plan Assessment/Plan Assessment Lactic acidosis rule out sepsis Intractable abdominal pain likely enteritis Hyponatremia Azotemia Diabetes type 2 Transaminitis Hyperbilirubinemia Hyperlipasemia History of CAD History of [place] status post CABG History of hypertension History of hyperlipidemia History of prostate cancer diagnosed in 2014 Plan Admit to [facility] Blood cultures NS 2 L given ED IV antibiotics-Zosyn Antiemetics Troponins negative x2 CT abdomen and pelvis EKG noted Chest x-ray noted UA Mag level Lipase Lactic BNP Albumin level T bili Hemoglobin A1c ISS and Accu-Cheks IV fluids Last echo on 07/22/2023 EF 60% Discussed plan of care with patient and nurse Home medications reconciled -apixaban DVT prophylaxis patient on apixaban PUD prophylaxis-Protonix Plan discussed with: Patient My Orders Orders - WILLIAMS RODRÍGUEZ [employer] Procedure Category Date Status Time Sodium Chloride 0.9% PHA 05/26/24 Logged 14:30 Piperacillin-Tazob PHA 05/26/24 Logged 3.375gm (Zosyn 3.375g 14:30 Admit ADMIT 05/26/24 Transmitted 14:30 Allergies CURTIS 05/26/24 In Process 14:30 Code Status CODE 05/26/24 Transmitted 14:30 Hydrocodone-Acet PHA 05/26/24 Logged 5/325mg Tab ([place] 14:30 Ondansetron Hcl PHA 05/26/24 Logged (Zofran) 14:30 Complete Blood Count LAB 05/27/24 Verified 04:00 Comprehensive LAB 05/27/24 Verified Metabolic Panel 04:00 Cardiac DIET 05/26/24 Transmitted Diet-2gna,Lofat,Lochol Dinner Enoxaparin Sodium PHA 05/27/24 Logged (Lovenox) 10:00 Acetaminophen Tablet PHA 05/26/24 Logged (Tylenol Tablet) 14:30 Morphine Sulfate PHA 05/26/24 Logged Injection 14:30 Glucose Blood PHA 05/26/24 Logged (Accu-Chek Comfort 17:00 Insulin R (Human) PHA 05/26/24 Logged (Insulin R) 17:00 Dextrose 50% Syringe PHA 05/26/24 Logged 14:30 Hemoglobin A1c LAB 05/26/24 Logged 14:30 Apixaban (Eliquis) PHA 05/26/24 Logged 22:00 Carvedilol Tablet PHA 05/26/24 Logged (Coreg Tablet) 22:00 Ezetimibe (Zetia) PHA 05/27/24 Transmitted 10:00 (Nf) Atorvastatin PHA 05/27/24 Transmitted Calcium 10:00 Date of Service: May 26, 2024 Billing Provider: WILLIAMS RODRÍGUEZ Common Visit Codes: [id number] INP/OBS CARE (HIGH) WILLIAMS RODRÍGUEZ May 26, 2024 14:44
[2024-05-26] MEDS: SODIUM CHLORIDE 0.9% 1,000 ML IV ONE (14:59)
[2024-05-26] MEDS: ACCU-CHEK COMFORT CURVE STRIP VI SCH (17:00)
[2024-05-26] MEDS: InsuLIN REG 1unit/0.01ml Soln (100units/ml) SC SCH (17:00)
[2024-05-26 18:00] VITALS: BP 128/57; PULSE 72; RESP 20; TEMP 97.7; O2SAT 99
[2024-05-26 18:02] VITALS: BP 121/69; PULSE 79; RESP 18; TEMP 98.1; O2SAT 96
[2024-05-26 20:00] VITALS: PULSE 74; RESP 18; O2SAT 96
[2024-05-26] MEDS: ATORVASTATIN 20 MG TAB PO SCH (20:52)
[2024-05-26] MEDS: APIXABAN 2.5 MG TAB PO SCH (20:52)
[2024-05-26 21:00] VITALS: BP 108/66; PULSE 74; RESP 18; TEMP 97.8; O2SAT 96
[2024-05-26] MEDS: CARVEDILOL 3.125 MG TAB PO SCH (21:04)
[2024-05-27 01:00] VITALS: BP 120/56; PULSE 71; RESP 18; TEMP 97.7; O2SAT 98
[2024-05-27 05:00] VITALS: BP 105/62; PULSE 64; RESP 18; TEMP 97.5; O2SAT 100
[2024-05-27 06:46] LABS: Alanine Aminotransferase 34 U/L (7-40); Alkaline Phosphatase 80 U/L (46-116); Anion Gap 11 (5-15); Aspartate Aminotransferase 33 U/L (13-40); Calcium 8.9 mg/dL (8.7-10.4); Potassium 4.5 mmol/L (3.5-5.1); Sodium 139 mmol/L (136-145); Total Protein 6.8 g/dL (5.7-8.2)
[2024-05-27 06:47] LABS: Albumin 4.1 g/dL (3.2-4.8); Bilirubin, Total 3.4 mg/dL (0.2-1.0); Blood Urea Nitrogen 33 mg/dL (9-23); Carbon Dioxide 19 mmol/L (20-31); Chloride 109 mmol/L (98-107); Glucose 150 mg/dL (74-106)
[2024-05-27 07:40] VITALS: BP 115/54; PULSE 61; RESP 18; TEMP 98.4; O2SAT 96
[2024-05-27 07:43] LABS: Basophils # (auto) 0 10 ^3/uL (0-0.2); Basophils % (auto) 0.5 % (0.0-2.0); Eosinophils # (auto) 0.2 10 ^3/uL (0-0.8); Eosinophils % (auto) 3.4 % (0.0-7.0); Hematocrit 41.7 % (41.0-53.0); Hemoglobin 14.5 g/dL (13.5-17.5); Lymphocytes # (auto) 1.6 10 ^3/uL (0.4-5.4); Lymphocytes % (auto) 25.5 % (10.0-50.0); Mean Corpuscular Hemoglobin 31.7 pg (28.0-32.0); Mean Corpuscular Hgb Conc. 34.8 g/dL (32.0-36.0); Mean Corpuscular Volume 90.9 fL (80.0-100.0); Monocytes # (auto) 0.7 10 ^3/uL (0-1.3); Monocytes % (auto) 11.7 % (0.0-12.0); Neutrophils # (auto) 3.8 10 ^3/uL (1.6-8.6); Neutrophils % (auto) 58.9 % (37.0-80.0); Nucleated Red Blood Cells % 0.3 %; Platelet Count (auto) 164 10^3/uL (140-450); Red Blood Cells 4.59 10^6/uL (4.5-5.90); White Blood Cell 6.4 10^3/uL (4.4-10.8)
[2024-05-27] MEDS: SODIUM CHLORIDE 0.9% 500 ML IV ONE (09:00)
--- NOTE | 2024-05-27 09:52 | DVH ---
INDICATION: transaminitis TECHNIQUE: Multiple real-time sonographic images were obtained of the right upper quadrant. COMPARISON: GBUS on DOS: 08/19/21, GALLBLADDER on DOS: 08/19/21 FINDINGS: The liver demonstrates heterogeneous echotexture without focal mass lesions. The liver joyce ures 16cm. There is no intrahepatic or extrahepatic ductal dilatation. The common duct measures 0. 5 mm. Gallbladder surgically absent. The right kidney measures 8 cm. The right kidney is normal in contour, size, and shape. The echogeni city is normal. There is no hydronephrosis. The pancreas is not well visualized due to overlying bowel gas. IMPRESSION: No sonographic evidence of gallstones or acute cholecystitis. Hepatic steatosis.
[2024-05-27] MEDS ORDERED: ENOXAPARIN SOD 30 MG/0.3 ML SYRINGE SC SCH (10:00)
[2024-05-27] MEDS ORDERED: PATIENTS OWN MEDICATION (Atorvastatin Calcium 1 TAB) PO SCH (10:00)
[2024-05-27] MEDS: EZETIMIBE 10 MG TAB PO SCH (10:27)
[2024-05-27] MEDS: PANTOPRAZOLE 40 MG/10 ML VIAL INJ IV SCH (10:27)
[2024-05-27] MEDS ORDERED: LOPERAMIDE HCL 2 MG CAP/TAB PO PRN (11:00)
[2024-05-27] MEDS: SODIUM CHLORIDE 0.9% 1,000 ML IV ONE (12:15)
[2024-05-27 12:18] VITALS: BP 108/55; PULSE 49; RESP 18; TEMP 98.6; O2SAT 96
[2024-05-27] MEDS: LOPERAMIDE HCL 2 MG CAP/TAB PO ONE (13:57)
[2024-05-27 15:52] LABS: Potassium 4.4 mmol/L (3.5-5.1); Sodium 139 mmol/L (136-145)
[2024-05-27 15:53] LABS: Anion Gap 9 (5-15)
[2024-05-27 15:59] LABS: BUN/Creatinine Ratio 16.3 (10.0-20.0); Blood Urea Nitrogen 22 mg/dL (9-23)
[2024-05-27 16:07] LABS: Calcium 8.5 mg/dL (8.7-10.4); Carbon Dioxide 17 mmol/L (20-31); Chloride 113 mmol/L (98-107); Glucose 138 mg/dL (74-106)
[2024-05-27 17:00] VITALS: BP_SYST 126; BP_SYST 99; BP_DIAS 48; BP_DIAS 67; PULSE 50; PULSE 78; RESP 19; TEMP 97.5; O2SAT 99
--- NOTE | 2024-05-27 17:10 | DVHDSRES ---
Discharge Summary Date of Admission Resident Creating Document: SOPHIA DURAN RESIDENT May 26, 2024 at 14:30 Date of Discharge: May 27, 2024 Admitting Diagnosis enteritis Labs/Diagnostic Data: Laboratory Results Test 05/27/24 15:13 05/27/24 11:49 05/27/24 09:54 05/27/24 05:33 Sodium Level 139 mmol/L (136-145) Potassium Level 4.4 mmol/L (3.5-5.1) Chloride Level 113 mmol/L (98-107) Carbon Dioxide Level 17 mmol/L (20-31) Anion Gap 9 (5-15) Blood Urea Nitrogen 22 mg/dL (9-23) Creatinine 1.35 mg/dL (0.700-1.30) Glomerular Filtration Rate Calc 54 mL/min (>90) BUN/Creatinine Ratio 16.3 (10.0-20.0) Serum Glucose 138 mg/dL (74-106) Calcium Level 8.5 mg/dL (8.7-10.4) POC Glucose 124 mg/dl (70-106) Lactic Acid Level 1.5 mmol/L (0.4-2.0) White Blood Count 6.4 10^3/uL (4.4-10.8) Red Blood Count 4.59 10^6/uL (4.5-5.90) Hemoglobin 14.5 g/dL (13.5-17.5) Hematocrit 41.7 % (41.0-53.0) Mean Corpuscular Volume 90.9 fL (80.0-100.0) Mean Corpuscular Hemoglobin 31.7 pg (28.0-32.0) Mean Corpuscular Hemoglobin Concent 34.8 g/dL (32.0-36.0) Red Cell Distribution Width 14.0 % (11.8-14.3) Platelet Count 164 10^3/uL (140-450) Mean Platelet Volume 7.9 fL (6.9-10.8) Neutrophils (%) (Auto) 58.9 % (37.0-80.0) Lymphocytes (%) (Auto) 25.5 % (10.0-50.0) Monocytes (%) (Auto) 11.7 % (0.0-12.0) Eosinophils (%) (Auto) 3.4 % (0.0-7.0) Basophils (%) (Auto) 0.5 % (0.0-2.0) Neutrophils # (Auto) 3.8 10 ^3/uL (1.6-8.6) Lymphocytes # (Auto) 1.6 10 ^3/uL (0.4-5.4) Monocytes # (Auto) 0.7 10 ^3/uL (0-1.3) Eosinophils # (Auto) 0.2 10 ^3/uL (0-0.8) Basophils # (Auto) 0 10 ^3/uL (0-0.2) Nucleated Red Blood Cells 0.3 % Total Bilirubin 3.4 mg/dL (0.2-1.0) Aspartate Amino Transferase (AST) 33 U/L (13-40) Alanine Aminotransferase (ALT) 34 U/L (7-40) Alkaline Phosphatase 80 U/L (46-116) Total Protein 6.8 g/dL (5.7-8.2) Albumin 4.1 g/dL (3.2-4.8) Test 05/26/24 22:31 05/26/24 13:40 05/26/24 10:36 05/26/24 10:35 Stool for White Cells None seen Troponin I High Sensitivity 8 ng/L (</=54) Hemoglobin A1c 6.6 % A1C (<5.7) Magnesium Level 2.5 mg/dL (1.6-2.6) B-Type Natriuretic Peptide 12.02 pg/mL (0-100) Lipase 62 U/L (12-53) Urine Color Yellow (Yellow) Urine Clarity Clear (Clear) Urine pH 5.0 (5.0-9.0) Urine Specific [place] 1.022 (1.001-1.035) Urine Protein 1+ (Negative) Urine Ketones 1+ (Negative) Urine Blood Trace /uL (Negative) Urine Nitrite Negative (Negative) Urine Bilirubin Negative (Negative) Urine Urobilinogen Normal mg/dL (Negative) Urine Leukocyte Esterase Negative /uL (Negative) Urine RBC 1 /hpf (0 - 3) Urine Microscopic WBC 1 /HPF (0-3) Urine Squamous Epithelial Cells Few /hpf (<5) Urine Bacteria None seen /hpf (None Seen) Urine Hyaline Casts Few /lpf (0 - 2) Urine Mucus Few (None Seen) Urine Glucose Normal mg/dL (Normal) Other Laboratory Tests 05/27/24 15:13 05/27/24 05:33 Brief Hx & Hospital Course: This is a 79-year-old male who presents to the ED with abdominal discomfort, nausea, vomiting, and diarrhea x4 days. PMH: CAD, HTN, [place], hyperipidemia, Prostate cancer diagnosed in 2014 Past Surgical History: Cholecystectomy, CABG, Other (Bilateral eye surgery), Tonsillectomy Family History: Other (Dad with rheumatic heart disease) SH: Smoke: Quit. ALCOHOL: none. Drugs: None. Lives: with Family Patient reports that he has been getting weak since the diarrhea. He denies any recent ingestion of spoiled food, recent trauma or injury, chest pain, shortness of breath, fever, chills, lightheadedness, and dizziness. Patient reports that he quit smoking 30 years ago, does not use drugs, and does not drink. 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 On my initial assessment, patient was seen and examined at bedside. He currently states feeling better than on admission. Denies any significant shortness of breath, chest pain, abdominal pain, dysuria, nausea, vomiting, dizziness, lightheadedness. He's currently tolerating diet. He stated the his bowel movements have decreased, since breakfast he has only had two. Patient was given significant IV fluid, he was on antiemetics, pain medication. Patient was given also IV antibiotics. Patient has had significant clinical improvement. Physical examination as below: General: Awake, alert, comfortable appearing, in no acute distress. HEENT: Head is normocephalic and atraumatic. Pupils are equal, round, and reactive to light. Extraocular muscles are intact. No nasal discharge. No facial trauma. Intraoral exam shows moist mucous membranes with no tonsillar enlargement or exudate. Neck: Supple with no cervical lymphadenopathy. Heart: Regular rate without murmur, rub, or gallop. Lungs: Equal breath sounds bilaterally with no wheezing, rales, or rhonchi. There is no chest wall tenderness or instability. Abdomen: No external sign of injury. Bowel sounds are present. Abdomen is soft, nontender. No rebound, no guarding, no rigidity. There are no palpable masses. There is no flank pain on exam. Extremities: Strong peripheral pulses. There is no clubbing, no cyanosis, and no edema. Skin: No rash. Neurologic: Cranial nerves II-XII intact without motor, sensory, or cerebellar deficit, no asterixis. Patient will be discharge home, he will continue home medications as prescribed. He will continue taking Imodium as needed, and cholestyramine. Patient will stop taking magnesium oxide until his diarrhea improves and we recommended him to follow up with his beet worker. We will encourage him to continue a soft diet and continue resting and taking plenty of fluids. He will follow-up with PCP in 1-2 weeks. Patient verbalized understanding and agree with the DC plan, we spent over 30 minutes explaining the plan. Case was discussed with Dr. Roche Operations or Procedures [place] [id number] Ph: [phone] DIAGNOSTIC IMAGING Diagnostic Imaging Report : [id number] Signed PATIENT: KAYLA TIERNEY ACCT: [id number] UNIT: [id number] : 1945 LOC: ER ROOM / BED: / AGE / SEX: 79 / M ADM STATUS: REG ER SERVICE 1018 ORDERING PHYSICIAN: DEEPTI BARRY DO PROCEDURE(s): ABPL - CT AB PEL WO CON-NO ORAL OR IV REASON: N/V/D ABD PAIN PALPIT SOB ORDER NUMBER(s): [id number], ACCESSION NUMBER(s): [id number] CLINICAL INFORMATION: Abdominal pain. Nausea, vomiting, diarrhea. TECHNIQUE: Axial CT images of the abdomen and pelvis were obtained without IV contrast. Coronal and sagittal reformatted images were obtained, reviewed, and stored. Evaluation of the parenchymal organs is limited without IV contrast. Evaluation of the bowel and mesentery is limited without oral contrast. All CT scans at this medical facility are performed using dose modulation techniques as appropriate to a performed exam including the following: Automated exposure control was utilized; adjustment of the MA and/or KV according to patient size; and use of iterative reconstruction technique. CTDIvol = 13.58 mGy DLP = 797.37 mGy-cm COMPARISON: None FINDINGS: Lung bases: Partially visualized moderate emphysematous changes and mild fibrotic changes. Liver: Grossly unremarkable in its noncontrast enhanced appearance. No abnormal density or focal lesion identified. Biliary: Cholecystectomy. Spleen: Unremarkable. Pancreas: Grossly unremarkable in its noncontrast enhanced appearance. Adrenal glands: Unremarkable. No mass. Kidneys: No hydronephrosis. No renal or ureteral calculi. Aorta/Vascular: Dense atherosclerotic calcification. No abdominal aortic aneurysm. Retroperitoneum: No mass or lymphadenopathy. Bowel/mesentery: Nonspecific nondilated fluid-filled small bowel loops. Findings may be seen with ileus or enteritis in the appropriate clinical setting. No small bowel obstruction. Appendix is visualized and appears normal in caliber with no periappendiceal stranding to suggest acute appendicitis. Intraluminal density within the appendix consistent with appendicoliths. Scattered colonic diverticula without adjacent inflammatory changes to suggest diverticulitis. Pelvic organs: Likely brachytherapy seeds in the prostate Bladder: Grossly unremarkable Abdominal wall: No mass or hernia. Bones: No acute fracture or suspicious intraosseous lesion. IMPRESSION: 1. Nonspecific nondilated fluid-filled small bowel loops. Findings may be seen with ileus or enteritis in the appropriate clinical setting. No small bowel obstruction. 2. Scattered colonic diverticula without adjacent inflammatory changes to suggest diverticulitis. 3. Additional nonacute findings as detailed above. ATED BY: RASTA BARNHART DO DICTATED DATE/TIME: 05/26/24 1213 SIGNED BY: RASTA BARNHART DO SIGNED DATE/TIME: 05/26/24 121 CC: [place] [id number] Ph: [phone] DIAGNOSTIC IMAGING Diagnostic Imaging Report : [id number] Signed PATIENT: KAYLA TIERNEY ACCT: [id number] UNIT: [id number] : 1945 LOC: ER ROOM / BED: / AGE / SEX: 79 / M ADM STATUS: REG ER SERVICE 1018 ORDERING PHYSICIAN: DEEPTI BARRY DO PROCEDURE(s): CXRP - CHEST PORTABLE REASON: N/V/D ABD PAIN PALPIT SOB ORDER NUMBER(s): [id number], ACCESSION NUMBER(s): [id number] EXAM: XY CHEST PORTABLE Indication: Pain Technique: Single frontal view of the chest was obtained Comparison: XY CHEST PORTABLE on DOS: 04/19/24, CXRP on DOS: 08/19/21, CHEST PORTABLE on DOS: 08/19/21, CHEST XRAY 1 VIEW on DOS: 01/25/21 FINDINGS: Lines and Tubes: None Lungs: No focal consolidation. Pleura: No effusion. No pneumothorax. Cardiomediastinal contours: Unremarkable. Atherosclerotic vascular calcifications of the thoracic aorta are noted. Bones: No acute osseous abnormality. IMPRESSION: No acute cardiopulmonary disease. ATED BY: DAVON DODD MD DICTATED DATE/TIME: 05/26/241206 SIGNED BY: DAVON DODD MD SIGNED DATE/TIME: 05/26/241206 CC: [place] [id number] Ph: [phone] DIAGNOSTIC IMAGING Diagnostic Imaging Report : [id number] Signed PATIENT: KAYLA TIERNEY ACCT: [id number] UNIT: [id number] : 1945 LOC: [facility] ROOM / BED: [facility] / AGE / SEX: 79 / M ADM STATUS: ADM IN SERVICE 1 ORDERING PHYSICIAN: SOPHIA DURAN RESIDENT PROCEDURE(s): LIVUS - LIVER REASON: transaminitis ORDER NUMBER(s): [id number], ACCESSION NUMBER(s): [id number] INDICATION: transaminitis TECHNIQUE: Multiple real-time sonographic images were obtained of the right upper quadrant. COMPARISON: GBUS on DOS: 08/19/21, GALLBLADDER on DOS: 08/19/21 FINDINGS: The liver demonstrates heterogeneous echotexture without focal mass lesions. The liver measures 16cm. There is no intrahepatic or extrahepatic ductal dilatation. The common duct measures 0.5 mm. Gallbladder surgically absent. The right kidney measures 8 cm. The right kidney is normal in contour, size, and shape. The echogenicity is normal. There is no hydronephrosis. The pancreas is not well visualized due to overlying bowel gas. IMPRESSION: No sonographic evidence of gallstones or acute cholecystitis. Hepatic steatosis. ATED BY: ELIZABETH BEE MD DICTATED DATE/TIME: 05/27/24949 SIGNED BY: ELIZABETH BEE MD SIGNED DATE/TIME: 05/27/24949 CC: Condition at Discharge: Guarded Final Diagnosis/Problems List gastroenteritis, infectious vs noninfections, likely medication induced Lactic acidosis Intractable abdominal pain likely enteritis, improved ZENON due to vmn Diabetes type 2 Transaminitis Hyperbilirubinemia Hyperlipasemia History of CAD History of [place] status post CABG History of hypertension History of hyperlipidemia History of prostate cancer diagnosed in 2014 Discharge Disposition: Home Discharge Instruct/Medications Diet: Regular Activity: No Restrictions, As Tolerated Follow Up/Referral: fu with pcp in 1-2 weeks Medications: continue meds as prescribed Discharge Statement: "Patient was advised to return to the ER or call 911 if any headaches, dizziness, shortness of breath, chest pain, abdominal pain, bleeding, fevers, or worsening of medical condition. Patient was counseled about treatment plan, medications, possible side effects, patientverbalized understanding. All questions were answered to the best of my ability. This discharge took greater then 30 minutes in planning, reviewing documentation, counseling the patient, and discussing with other team members." ASSESSMENT ASSESSMENT Assessment gastroenteritis Date of Service: May 27, 2024 Billing Provider: ADITYA ROCHE MD Common Visit Codes: 19886-WPU/OBS DISCH DAY >30min SOPHIA DURAN RESIDENT May 27, 2024 17:09 ADITYA ROCHE MD May 29, 2024 08:55
[2024-05-27] MEDS ORDERED: LOPE2CAP16 PO (17:38)
[2024-05-27] MEDS ORDERED: CHOL4POW33 PO (17:38)
== END 2024-05-27 18:50 | disposition home or self-care (01) | DRG 393 ==
LOC: ER 10:10 → OVERFLOW 14:30 → EAST 17:41
PROVIDERS: ADMIT Internal Medicine; ATTEND Internal Medicine
DX: K52.1 Toxic gastroenteritis and colitis (principal); N17.0 Acute kidney failure with tubular necrosis; E87.1 Hypo-osmolality and hyponatremia; E87.20 Acidosis, unspecified; A09 Infectious gastroenteritis and colitis, unspecified; E11.9 Type 2 diabetes mellitus without complications; E80.6 Other disorders of bilirubin metabolism; I25.10 Atherosclerotic heart disease of native coronary artery without angina pectoris; I10 Essential (primary) hypertension; R74.01 Elevation of levels of liver transaminase levels; E78.5 Hyperlipidemia, unspecified; T50.995A Adverse effect of other drugs, medicaments and biological substances, initial encounter; I25.2 Old myocardial infarction; Z95.1 Presence of aortocoronary bypass graft; Z90.49 Acquired absence of other specified parts of digestive tract; Z85.46 Personal history of malignant neoplasm of prostate; Z83.3 Family history of diabetes mellitus; Z87.891 Personal history of nicotine dependence; Y92.89 Other specified places as the place of occurrence of the external cause
CPT/HCPCS: 36415; 71045; 74176; 76705; 80048; 80053; 81001; 82962; 83036; 83605; 83690; 83735; 83880; 84484; 85025; 85048; 87040; 87045; 87086; 87177; 87427; 87493; 93005; 96361; 96365; 96375; G0378; J1815; J2405; J2470; J2543

== ENCOUNTER 2024-10-25 09:28 | Outpatient (CLI) | payer OTHER ==
[~2024-10-25 09:28] MED LIST changes: +CHOL4POW33 PO; +LOPE2CAP16 PO; -METF-370 PO
[2024-10-25 10:37] LABS: Creatine Kinase IFCC 134.0 U/L (46-171)
== END 2024-10-25 17:00 | disposition home or self-care (01) ==
LOC: LAB 09:28
PROVIDERS: ATTEND Internal Medicine
DX: M54.2 Cervicalgia (principal)
CPT/HCPCS: 36415; 82550; 85652; 86141

== ENCOUNTER 2024-11-28 08:03 | Outpatient (CLI) | payer OTHER ==
[2024-11-28 08:45] LABS: Alanine Aminotransferase 25 U/L (7-40); Albumin 4.3 g/dL (3.2-4.8); Alkaline Phosphatase 100 U/L (46-116); Anion Gap 7 (5-15); BUN/Creatinine Ratio 11.1 (10.0-20.0); Blood Urea Nitrogen 15 mg/dL (9-23); Calcium 9.2 mg/dL (8.7-10.4); Carbon Dioxide 28 mmol/L (20-31); Chloride 105 mmol/L (98-107); Glucose 106 mg/dL (74-106); Potassium 4.5 mmol/L (3.5-5.1); Sodium 140 mmol/L (136-145); Total Protein 7.5 g/dL (5.7-8.2); Triglycerides 96 mg/dL (< 150)
[2024-11-28 08:46] LABS: Cholesterol 79 mg/dL (< 200)
[2024-11-28 08:47] LABS: Bilirubin, Total 3.1 mg/dL (0.2-1.0); HDL Cholesterol 33 mg/dL (40-59)
== END 2024-11-28 17:00 | disposition home or self-care (01) ==
LOC: LAB 08:03
PROVIDERS: ATTEND Internal Medicine
DX: Z12.5 Encounter for screening for malignant neoplasm of prostate (principal); E11.9 Type 2 diabetes mellitus without complications; Z00.00 Encounter for general adult medical examination without abnormal findings
CPT/HCPCS: 36415; 80053; 80061; 83036; 84153